=== PATIENT | male | born 1945 | race Caucasian/White ===

== ENCOUNTER 2018-01-29 21:12 | Emergency (ER) | payer OTHER, SELFPAY ==
--- NOTE | 2018-01-29 21:20 | ED_ITS ---
HPI - General Adult General Chief complaint: Recheck/Abnormal Lab/Rx Stated complaint: SENT BY MD Time Seen by Provider: 01/29/18 21:19 Source: patient Mode of arrival: ambulatory Limitations: no limitations History of Present Illness HPI narrative: 72-year-old was sent to the emergency department by his primary care doctor from [facility] after he was seen today for a chronic cough that he has been having for the past several days / weeks. No fevers. Is reported the patient had blood work performed which showed that he had a pancytopenia in with an ANC just above 950. the primary care doctor sent him here for a repeat of his labs in for evaluation to make sure that the patient was not septic. He did admit the patient looks very well. He was prescribed Augmentin and Robitussin AC which the patient has not yet taken any doses of these medications. Patient states that he feels very well. Has had this chronic cough. No fevers. Review of Systems Constitutional Denies chills, Denies fatigue, Denies fever(s), Denies headache(s), Denies lethargy and Denies malaise Eyes Denies change in vision ENT Ears, Nose, Mouth, and Throat: Denies vertigo, Denies dizziness, Denies headache (s), Denies throat swelling and Denies tongue swelling Cardiovascular Denies chest pain and Denies dyspnea Respiratory Reports cough, Denies dyspnea and Denies wheezing Gastrointestinal Gastrointestinal: Denies abdominal pain, Denies nausea and Denies vomiting Genitourinary Denies dysuria Musculoskeletal Denies myalgias and Denies arthralgias Integumentary/Breasts Denies lesions and Denies rash Neurologic Denies behavioral changes, Denies vertigo, Denies dizziness and Denies headache( s) Psychiatric Denies behavioral changes Endocrine Denies change in body appearance and Denies fatigue Hematologic/Lymphatic Comments: Not on anticoagulation Allergic/Immunologic Denies throat swelling, Denies tongue swelling and Denies wheezing PFSH Medical History Basal cell carcinoma (Acute) Skin cancer (Acute) Squamous cell carcinoma (Acute) Surgical History No pertinent past surgical history (Acute) Social History marital status: lives independently: Yes Exam Initial Vital Signs Initial Vital Signs: Vital Signs Temperature 98.8 F 01/29/18 21:25 Pulse Rate 68 01/29/18 21:25 Respiratory Rate 16 01/29/18 21:25 Blood Pressure 174/82 H 01/29/18 21:25 Pulse Oximetry 100 01/29/18 21:25 Const General: cooperative, healthy appearing, comfortable, well developed, well groomed and No acute distress Orientation: alert, awake and oriented x3 HENMT Head: normal to inspection, normocephalic and atraumatic Ears: hearing grossly normal bilaterally Nose: external nose normal Face and sinus: normal facial exam Eyes General: appearance normal, both eyes and all related structures Resp Effort & Inspection: normal respiratory effort Auscultation: clear to auscultation bilaterally Cardio Rate: regular rate Rhythm: regular rhythm Heart Sounds: no murmurs GI Inspection: non-distended Palpation: soft Skin Lesions: no lesions Rashes: no rashes Neuro General: alert, awake and oriented x3 Cognition: normal cognition Speech: speech normal Gait: normal gait Extrem General: normal to inspection and capillary refill normal Psych Appearance: grossly normal and well kempt Course Orders Ordered: ED Orders 01/29/18 21:21 XR chest 2V Stat 01/29/18 21:44 Urine Microscopic Stat 01/29/18 21:45 Basic Metabolic Panel Stat Complete Blood Count AUTO DIFF Stat Ethanol (ETOH) Stat Hepatic (Liver) Panel Stat Lactate (Lactic Acid) Stat Procalcitonin Stat Vital Signs - 8 hr 01/29/18 21:25 01/29/18 23:36 Temperature 98.8 F 97.8 F Pulse Rate 68 68 Respiratory Rate 16 Blood Pressure 174/82 H Blood Pressure [Right Arm] 153/74 H Pulse Oximetry 100 94 Medical Decision Making Lab Data Lab results reviewed: Yes I reviewed the patient's lab results. Result diagrams: 01/29/18 21:45 01/29/18 21:45 Lab Results 01/29/18 01/29/18 01/29/18 Range/Units 21:44 21:45 21:45 WBC 1.9 L* (4.5-11.0) X10^3/uL RBC 3.40 L (4.5-5.9) X10^6/uL Hgb 11.8 L (13.5-17.5) g/dL Hct 34.5 L (41-53) % MCV 101.3 H (80-100) fL MCH 34.6 H (26-34) PG MCHC 34.1 (30-36) % RDW 17.1 H (11.6-14.8) % Plt Count 250 (150-400) X10^3/uL Neut % (Auto) Not Reportable Lymph % (Auto) Not Reportable [place] % (Auto) Not Reportable Eos % (Auto) Not Reportable Baso % (Auto) Not Reportable Total Counted 100 Seg Neutrophils % 52.0 (38-70) % Lymphocytes % (Manual) 19.0 L (25-45) % Atypical Lymphs % 19.0 H ( - 0) % Monocytes % (Manual) 4.0 (2-11) % Eosinophils % (Manual) 6.0 H (2-4) % Neutrophils # (Manual) 988 L (2916-5560) /uL RBC Morphology Not Reportable Anisocytosis 2+ H Sodium 142 (137-145) mmol/L Potassium 3.4 (3.4-5.1) mmol/L Chloride 105 (98-107) mmol/L Carbon Dioxide 25 (22-32) mmol/L BUN 13 (9-20) mg/dL Creatinine 0.70 (0.66-1.25) mg/dL Estimated GFR > 60.0 (>60) mL/min BUN/Creatinine Ratio 18.6 (6-22) Glucose 102 (80-110) mg/dL Lactate (0.7-2.1) mmol/L Calcium 9.7 (8.4-10.2) mg/dL Total Bilirubin 0.5 (0.2-1.3) mg/dL Conjugated Bilirubin 0.0 (0.0-0.3) md/dL Unconjugated Bilirubin 0.3 (0.0-1.1) mg/dL AST 26 (17-59) IU/L ALT 39 (21-72) IU/L Alkaline Phosphatase 68 (38-126) U/L Total Protein 7.9 (6.3-8.2) g/dL Albumin 4.8 (3.5-5.0) g/dL Globulin 3.1 (1.7-4.1) g/dL Albumin/Globulin Ratio 1.5 (1.0-2.8) Procalcitonin (<0.5) ng/mL Urine RBC 5-10/hpf H (0-5/HPF) Urine WBC None seen (0-5/HPF) Ur Squamous Epith Cells 0-1 /hpf Urine Bacteria None seen (None) Ur Culture Indicated? Cult not indicated Micro UA Comment Not Reportable Ethyl Alcohol < 10 mg/dL 01/29/18 01/29/18 Range/Units 21:45 21:45 WBC (4.5-11.0) X10^3/uL RBC (4.5-5.9) X10^6/uL Hgb (13.5-17.5) g/dL Hct (41-53) % MCV (80-100) fL MCH (26-34) PG MCHC (30-36) % RDW (11.6-14.8) % Plt Count (150-400) X10^3/uL Neut % (Auto) Lymph % (Auto) [place] % (Auto) Eos % (Auto) Baso % (Auto) Total Counted Seg Neutrophils % (38-70) % Lymphocytes % (Manual) (25-45) % Atypical Lymphs % ( - 0) % Monocytes % (Manual) (2-11) % Eosinophils % (Manual) (2-4) % Neutrophils # (Manual) (6072-6204) /uL RBC Morphology Anisocytosis Sodium (137-145) mmol/L Potassium (3.4-5.1) mmol/L Chloride (98-107) mmol/L Carbon Dioxide (22-32) mmol/L BUN (9-20) mg/dL Creatinine (0.66-1.25) mg/dL Estimated GFR (>60) mL/min BUN/Creatinine Ratio (6-22) Glucose (80-110) mg/dL Lactate 1.2 (0.7-2.1) mmol/L Calcium (8.4-10.2) mg/dL Total Bilirubin (0.2-1.3) mg/dL Conjugated Bilirubin (0.0-0.3) md/dL Unconjugated Bilirubin (0.0-1.1) mg/dL AST (17-59) IU/L ALT (21-72) IU/L Alkaline Phosphatase (38-126) U/L Total Protein (6.3-8.2) g/dL Albumin (3.5-5.0) g/dL Globulin (1.7-4.1) g/dL Albumin/Globulin Ratio (1.0-2.8) Procalcitonin < 0.05 (<0.5) ng/mL Urine RBC (0-5/HPF) Urine WBC (0-5/HPF) Ur Squamous Epith Cells Urine Bacteria (None) Ur Culture Indicated? Micro UA Comment Ethyl Alcohol mg/dL Urine Dip Bedside Urine Glucose Negative Bedside Urine Bilirubin - Negative Bedside Urine Ketone - Negative Urine Specific [place] 1.030 Bedside Urine Occult Blood ++ Bedside Urine pH 6.0 Bedside Urine Protein - Negative Bedside Urine Urobilinogen - Negative Bedside Urine Nitrite - Negative Bedside Urine Leukocytes - Negative Esterase Point of care testing: Urine Dip Bedside Urine Glucose Negative Bedside Urine Bilirubin - Negative Bedside Urine Ketone - Negative Urine Specific [place] 1.030 Bedside Urine Occult Blood ++ Bedside Urine pH 6.0 Bedside Urine Protein - Negative Bedside Urine Urobilinogen - Negative Bedside Urine Nitrite - Negative Bedside Urine Leukocytes - Negative Esterase Imaging Data Chest x-ray: Radiologist's impression: PROCEDURE: XR CHEST 2V INDICATIONS: eval for pneumonia TECHNIQUE: 2 views of the chest were acquired. COMPARISON: None. FINDINGS: Surgical changes and devices: None. Lungs and pleura: No pleural effusions or pneumothorax. Lungs are clear. Mediastinum: Mediastinal contours are normal. Heart size is normal. Bones and chest wall: No suspicious bony abnormalities. Soft tissues appear unremarkable. IMPRESSION: No acute cardiopulmonary disease process. Dictated by: Evy Roberts MD, PhD on 01/29/2018 at 21:47 Approved by: Evy Roberts MD, PhD on 01/29/2018 at 21:47 [facility] Narrative Medical decision making narrative: patient is neutropenic with a ANC of 988 however is afebrile. No signs of infection. Has a normal exam. Chest x-ray and urine unremarkable. Patient does have a low white blood cell count. Recently finished a course of steroids for his chronic cough that has been greater than 2 weeks ago. Patient has no signs of sepsis. A long discussion with the patient regarding his symptoms. We did discuss that taking the antibiotics that he was prescribed is not unreasonable for treatment of a presumed atypical pneumonia. We also discussed other options to include a daily antihistamine such as Claritin or Angela and the Robitussin AC. Also stated that he could do these in addition to the antibiotics if desired. I feel like there is no further workup that needs to be completed here in the emergency department. The patient looks very well. Patient was given a copy of his laboratory results to take to his primary care doctor. Patient was given return precautions. He expressed understanding and agreement this plan. Discharge Plan Departure Patient Disposition: Home Clinical Impression: Cough, Leukopenia Discharge Date/Time: 01/30/18 00:06 Interventions: ED Discharge Assessment Last Done: 01/30/18 00:05 Instructions: Cough (Alternative Therapy), Cough Activity Restrictions/Additional Instructions: I do recommend you contact your primary care doctor tomorrow to discuss the labs that were done today. Return to the emergency department for any new or worsening symptoms.
[2018-01-29 21:25] VITALS: BP 174/82; PULSE 68; RESP 16; TEMP 37.1; O2SAT 100; BMI 27.3
[2018-01-29 22:05] LABS: Hematocrit 34.5 % (41-53); Hemoglobin 11.8 g/dL (13.5-17.5); Mean Corpuscular HGB Conc 34.1 % (30-36); Mean Corpuscular Hemoglobin 34.6 PG (26-34); Mean Corpuscular Volume 101.3 fL (80-100); Platelet Count 250 X10^3/uL (150-400); Red Cell Distribution Width 17.1 % (11.6-14.8)
[2018-01-29 22:06] LABS: Add Manual Diff / Slide Review YES
[2018-01-29 22:07] LABS: White Blood Cell Count 1.9 X10^3/uL (4.5-11.0)
[2018-01-29 22:12] LABS: Alanine Aminotransferase 39 IU/L (21-72); Albumin 4.8 g/dL (3.5-5.0); Albumin Globulin Ratio 1.5 (1.0-2.8); Alkaline Phosphatase 68 U/L (38-126); Aspartate Aminotransferase 26 IU/L (17-59); BUN Creatinine Ratio 18.6 (6-22); Bilirubin Total 0.5 mg/dL (0.2-1.3); Bilirubin Unconjugated 0.3 mg/dL (0.0-1.1); Blood Urea Nitrogen 13 mg/dL (9-20); Calcium 9.7 mg/dL (8.4-10.2); Carbon Dioxide 25 mmol/L (22-32); Chloride 105 mmol/L (98-107); Estimated Glomerular Filt Rate > 60.0 mL/min (>60); Globulin 3.1 g/dL (1.7-4.1); Glucose 102 mg/dL (80-110); HEMOLYSIS < 15 (0-50); Potassium 3.4 mmol/L (3.4-5.1); Sodium 142 mmol/L (137-145); Total Protein 7.9 g/dL (6.3-8.2)
[2018-01-29 22:13] LABS: Lactate (Lactic Acid) 1.2 mmol/L (0.7-2.1)
[2018-01-29 22:20] LABS: Ethanol (ETOH) < 10 mg/dL
[2018-01-29 22:23] LABS: Bacteria Urine None Seen; WBC Urine None Seen (0-5/HPF)
[2018-01-29 22:25] LABS: Neutrophils Absolute Manual 988 /uL (3000-5900); Total Cells Counted 100
[2018-01-29 22:26] LABS: Anisocytosis 2+
[2018-01-29 22:30] LABS: Culture Indicated Urine Cult Not Indicated; RBC Urine 5-10/HPF (0-5/HPF); Squamous Epithelial Cell Urine 0-1 /HPF
[2018-01-29 22:39] LABS: Procalcitonin < 0.05 ng/mL (<0.5)
[2018-01-29 23:36] VITALS: BP 153/74; PULSE 68; TEMP 36.6; O2SAT 94
== END 2018-01-30 00:06 | disposition home or self-care (01) ==
PROVIDERS: Emergency Provider Emergency Medicine; Family Provider Family Medicine; PCP Family Medicine
DX: D72.819 Decreased white blood cell count, unspecified (principal); R05 Cough
CPT/HCPCS: 36591; 71046; 80048; 80076; 80320; 81003; 81015; 83605; 84145; 85025; 99282; 99284

== ENCOUNTER → 2020-07-10 11:59 | Outpatient (CLI) | payer MEDICARE, SELFPAY ==
[2020-07-10 20:04] LABS: Alanine Aminotransferase 22 IU/L (<50); Albumin 4.4 g/dL (3.5-5.0); Albumin Globulin Ratio 1.7 (1.0-2.8); Alkaline Phosphatase 78 U/L (38-126); Aspartate Aminotransferase 23 IU/L (17-59); BUN Creatinine Ratio 21.9 (6-22); Bilirubin Total 0.7 mg/dL (0.2-1.3); Blood Urea Nitrogen 16 mg/dL (9-20); Calcium 9.5 mg/dL (8.4-10.2); Carbon Dioxide 28 mmol/L (22-32); Chloride 103 mmol/L (98-107); Estimated Glomerular Filt Rate > 60.0 mL/min (>60); Globulin 2.6 g/dL (1.7-4.1); Glucose 113 mg/dL (80-110); HEMOLYSIS < 15 (0-50); Potassium 3.7 mmol/L (3.4-5.1); Sodium 141 mmol/L (137-145)
[2020-07-10 20:20] LABS: Add Manual Diff / Slide Review NO; Basophils Absolute Auto 0 /uL (0-100); Basophils Percent Auto 0.8 % (0-2); Eosinophils Absolute Auto 100 /uL (0-450); Eosinophils Percent Auto 2.1 % (2-4); Hematocrit 43.1 % (41-53); Hemoglobin 14.8 g/dL (13.5-17.5); Lymphocytes Absolute Auto 600 /uL (1100-4500); Lymphocytes Percent Auto 26.3 % (25-40); Mean Corpuscular HGB Conc 34.2 % (30-36); Mean Corpuscular Hemoglobin 33.3 PG (26-34); Mean Corpuscular Volume 97.1 fL (80-100); Monocytes Absolute Auto 400 /uL (0-900); Monocytes Percent Auto 15.3 % (3-14); Neutrophils Absolute Auto 1400 /uL (1500-7000); Neutrophils Percent Auto 55.5 % (50-75); Platelet Count 154 X10^3/uL (150-400); Red Blood Cell Count 4.44 X10^6/uL (4.5-5.9); Red Cell Distribution Width 15.1 % (11.6-14.8); White Blood Cell Count 2.5 X10^3/uL (4.5-11.0)
== END ==
PROVIDERS: Family Provider Family Medicine; PCP Family Medicine; Visit Provider Internal Medicine Hematology
DX: D72.819 Decreased white blood cell count, unspecified (principal)
CPT/HCPCS: 80053; 85025

== ENCOUNTER → 2021-09-05 11:45 | Outpatient (CLI) | payer MEDICARE, OTHER, SELFPAY ==
[2021-09-05 18:41] LABS: Hemoglobin 13.3 g/dL (13.5-17.5)
[2021-09-05 18:46] LABS: Mean Corpuscular Hemoglobin 31.9 PG (26-34); Mean Corpuscular Volume 93.7 fL (80-100); Platelet Count 69 X10^3/uL (150-400); Red Blood Cell Count 4.16 X10^6/uL (4.5-5.9); Red Cell Distribution Width 16.6 % (11.6-14.8)
[2021-09-05 18:55] LABS: Add Manual Diff / Slide Review YES; White Blood Cell Count 1.4 X10^3/uL (4.5-11.0)
[2021-09-05 19:02] LABS: Neutrophils Absolute Manual 756 /uL (3000-5900); Total Cells Counted 100
[2021-09-05 19:03] LABS: Anisocytosis 1+; Ovalocytes 1+; Platelet Estimate Decr
== END ==
PROVIDERS: Family Provider Family Medicine; PCP Family Medicine; Visit Provider Family Medicine
DX: D70.8 Other neutropenia (principal); R50.9 Fever, unspecified; D46.9 Myelodysplastic syndrome, unspecified; R35.0 Frequency of micturition
CPT/HCPCS: 85007; 85025; 87040; 87086

== ENCOUNTER 2021-09-10 14:23 | Inpatient (IN) | payer MEDICARE, OTHER, SELFPAY ==
[2021-09-10] VITALS (26 sets, daily range): BP systolic 90–157; BP diastolic 51–77; PULSE 83–150; RESP 18–29; TEMP 36.8; O2SAT 82–100; BMI 25.9; BMI 25.2
--- NOTE | 2021-09-10 14:39 | DI.RAD.S_ITS ---
PROCEDURE: XR CHEST 1V INDICATIONS: chest pain TECHNIQUE: One view of the chest was acquired. COMPARISON: [facility] ([place]), CR, XR CHEST 2V, 09/05/2021, 11:45. FINDINGS: Surgical changes and devices: None. Lungs and pleura: Coarsened appearance of bibasilar opacities. Mediastinum: Mediastinal contours appear normal. Heart size is enlarged. Bones and chest wall: No suspicious bony lesions. Overlying soft tissues appear unremarkable. IMPRESSION: Coarsened bibasilar opacities, overall nonspecific. This could be related to atelectasis, dependent edema or potentially developing airspace disease. It is relatively unchanged compared to prior exam. Dictated by: Leydi Toribio M.D. on 09/10/2021 at 15:55 Approved by: Leydi Toribio M.D. on 09/10/2021 at 15:55
[2021-09-10 15:23] LABS: Hematocrit 36.5 % (41-53); Hemoglobin 12.6 g/dL (13.5-17.5); Mean Corpuscular HGB Conc 34.6 % (30-36); Mean Corpuscular Hemoglobin 31.7 PG (26-34); Mean Corpuscular Volume 91.5 fL (80-100); Platelet Count 89 X10^3/uL (150-400); Red Blood Cell Count 3.99 X10^6/uL (4.5-5.9); Red Cell Distribution Width 16.2 % (11.6-14.8)
[2021-09-10 15:24] LABS: Add Manual Diff / Slide Review YES; White Blood Cell Count 1.6 X10^3/uL (4.5-11.0)
[2021-09-10 15:34] LABS: Alanine Aminotransferase 16 IU/L (<50); Albumin 3.7 g/dL (3.5-5.0); Alkaline Phosphatase 61 U/L (38-126); Aspartate Aminotransferase 19 IU/L (17-59); BUN Creatinine Ratio 27.4 (6-22); Bilirubin Total 0.5 mg/dL (0.2-1.3); Blood Urea Nitrogen 23 mg/dL (9-20); Calcium 8.7 mg/dL (8.4-10.2); Carbon Dioxide 24 mmol/L (22-32); Chloride 104 mmol/L (98-107); Creatine Kinase 39 U/L (55-170); Estimated Glomerular Filt Rate > 60 mL/min (>60); Globulin 3.6 g/dL (1.7-4.1); Glucose 146 mg/dL (80-110); HEMOLYSIS < 15 (0-50); Lipase 13 U/L (23-300); Magnesium 2.1 mg/dL (1.6-2.3); Potassium 3.7 mmol/L (3.4-5.1); Sodium 137 mmol/L (137-145); Total Protein 7.3 g/dL (6.3-8.2)
[2021-09-10 15:41] LABS: Neutrophils Absolute Manual 816 /uL (3000-5900); Total Cells Counted 100
[2021-09-10 15:43] LABS: Anisocytosis 1+; Tear Drop Cells 1+
--- NOTE | 2021-09-10 15:53 | ED.ARRPALP ---
HPI - Arrhythmia/Palpitations General Chief Complaint: Arrhythmia/Palpitations Stated Complaint: High heart rate/ low blood pressure- sent by [facility] Time Seen by Provider: 09/10/21 14:45 Source: patient and family Mode of arrival: Ambulatory History of Present Illness HPI narrative: Patient is a 75-year-old male history of myelodysplastic syndrome, leukopenia currently on Revlimid presenting today with atrial fibrillation from the [facility]. He was seen evaluated all last week is had fever for couple of days as high as 100.1 all in no 101.6. He has been taking prophylactic Levaquin and acyclovir. He was seen evaluated by his primary care provider at that time. [place] including urinalysis blood work and chest x-ray. He says 2 days ago he felt a little bit of fluttering in his chest but he denies any shortness of breath cough or any chest discomfort. He was evaluated by EMS who reports that he is in atrial fibrillation. He is not currently on any blood thinners. He overall has no complaints now he is in the emergency department Related Data Home Medications Medication Instructions Recorded Confirmed amlodipine 2.5 mg tablet (Norvasc) 2.5 mg PO DAILY 03/03/18 02/03/19 diphenhydramine HCl 25 mg tablet 1 cap DAILY 03/03/18 02/03/19 (Benadryl Allergy) Previous Rx's Medication Instructions Recorded acyclovir 400 mg tablet 400 mg PO BID #60 tabs 12/01/18 lenalidomide 10 mg capsule 10 mg PO DAILY #21 caps 03/24/19 (Revlimid) Allergies Allergy/AdvReac Type Severity Reaction Status Date / Time No Known Drug Allergies Allergy Verified 09/10/21 14:35 Review of Systems Review of Systems Narrative: GENERAL: See HPI HEENT: Denies sinus pain, ear pain, sore throat, difficulty swallowing, neck pain RESPIRATORY: Denies dyspnea, cough, wheezing, hemoptysis, sputum. CARDIOVASCULAR: See HPI GASTROINTESTINAL: Denies nausea, vomiting, abdominal pain, diarrhea, constipation, melena. : Denies dysuria, frequency, incontinence, hematuria, urinary retention, flank pain. MUSCULOSKELETAL: Denies weakness, joint pain, or bony pain SKIN: No rash, no erythema, no pruritus NEUROLOGIC: Denies weakness, dizziness, headache, numbness, change in speech, confusion PSYCHIATRIC: No concerning psychosocial issues. 12 point review of systems is negative except for those stated above and HPI Patient History Medical History Basal cell carcinoma Skin cancer Squamous cell carcinoma Surgical History No pertinent past surgical history Social History marital status: lives independently: Yes Smoking Status: Never smoker Smoking Status: Never smoker alcohol intake frequency: a few times a month Substance Use Type: does not use Exam Initial Vital Signs Initial Vital Signs: Vital Signs Temperature 98.3 F 09/10/21 14:26 Pulse Rate 121 H 09/10/21 14:26 Respiratory Rate 18 09/10/21 14:26 Blood Pressure 157/74 H 09/10/21 14:26 Pulse Oximetry 100 09/10/21 14:26 Oxygen Delivery Method 09/10/21 14:26 GENERAL: Alert pleasant 75-year-old male no acute distress and in no acute distress. HEENT: Head atraumatic,EOMI, pupils reactive, face symmetric, moist mucous membranes CARDIOVASCULAR: Irregularly irregular tachycardic RESPIRATORY: Breath sounds equal bilaterally, no wheezes rales or rhonchi. ABDOMEN: Soft, nontender. Normoactive bowel sounds all 4 quadrants. No guarding or rebound. EXTREMITIES: Normal range of motion, no clubbing or edema. Neurovascularly intact NEUROLOGICAL: Alert and oriented x4.Normal gait and speech. SKIN: Warm, dry, no laceration, no petechiae, no rashes or lesions. Course Orders Ordered: ED Orders 09/10/21 14:35 EKG-12 Lead Stat 09/10/21 14:39 XR chest 1V Stat 09/10/21 14:49 BNP [NT-proBNP (BNP-Adult 18+)] Stat Complete Blood Count AUTO DIFF Stat Comprehensive Metabolic Panel Stat Lactate (Lactic Acid) Stat Lipase Stat Magnesium Stat PT [Prothrombin Time INR] Stat PTT [Partial Thromboplastin Time] Stat Procalcitonin Stat Troponin & CK Cardiac Panel Stat 09/10/21 16:53 Blood Culture Stat 09/10/21 18:05 COVID19 -Nasal RAPID/Pre-Proc Stat 09/10/21 23:00 PTT [Partial Thromboplastin Time] Stat 09/11/21 04:15 Partial Thromboplastin Time Q6H 09/11/21 10:15 Partial Thromboplastin Time Q6H Discontinued Medications Digoxin (Digoxin 500 Mcg/2 Ml Ampul) 250 mcg IV NOW ONE Stop: 09/10/21 17:24 Last Admin: 09/10/21 18:08 Dose: 250 mcg Documented By: YENNI Diltiazem HCl (Diltiazem 5 Mg/Ml Sdv) 10 mg IV NOW ONE Stop: 09/10/21 16:04 Last Admin: 09/10/21 16:41 Dose: 10 mg Documented By: YENNI Heparin Sodium (Porcine) (Heparin 5,000 Unit/Ml Vial) 6,900 unit 80 unit/kg (6900 unit) IV NOW ONE Stop: 09/10/21 16:10 Last Admin: 09/10/21 16:58 Dose: 6,900 unit Documented By: YENNI Heparin Sodium/Dextrose (Heparin Drip) 25,000 unit in 500 mls @ 20 mls/hr IV CONT KATHERINE; Protocol Last Titration: 09/10/21 17:14 Dose: 1,000 units/hr, 20 mls/hr Documented By: Admin: 09/10/21 16:59 Dose: 1,000 units/hr, 20 mls/hr Documented By: YENNI Vital Signs Vital signs: Vital Signs - 8 hr 09/10/21 14:26 09/10/21 14:48 09/10/21 14:52 Temperature 98.3 F Pulse Rate 121 H 83 142 H Respiratory Rate 18 23 Blood Pressure 157/74 H Pulse Oximetry 100 99 100 Oxygen Delivery Method Room Air 09/10/21 14:52 09/10/21 15:00 09/10/21 16:41 Temperature Pulse Rate 141 H 142 H Respiratory Rate 28 H Blood Pressure 108/58 L 108/58 L Pulse Oximetry 98 Oxygen Delivery Method MDM - Arrhythmia/Palpitations Lab Data Result diagrams: 09/10/21 14:49 09/10/21 14:49 Labs: Lab Results 09/10/21 09/10/21 09/10/21 Range/Units 14:49 14:49 14:49 WBC 1.6 L* (4.5-11.0) X10^3/uL RBC 3.99 L (4.5-5.9) X10^6/uL Hgb 12.6 L (13.5-17.5) g/dL Hct 36.5 L (41-53) % MCV 91.5 (80-100) fL MCH 31.7 (26-34) PG MCHC 34.6 (30-36) % RDW 16.2 H (11.6-14.8) % Plt Count 89 L (150-400) X10^3/uL Neut % (Auto) Not Reportable Lymph % (Auto) Not Reportable [place] % (Auto) Not Reportable Eos % (Auto) Not Reportable Baso % (Auto) Not Reportable Lymph # (Auto) Not Reportable [place] # (Auto) Not Reportable Baso # (Auto) Not Reportable Total Counted 100 Seg Neutrophils % 51.0 (38-70) % Lymphocytes % (Manual) 23.0 L (25-45) % Atypical Lymphs % 1.0 H ( - 0) % Monocytes % (Manual) 11.0 (2-11) % Eosinophils % (Manual) 14.0 H (2-4) % Neutrophils # (Manual) 816 L (3578-0544) /uL RBC Morphology See below Anisocytosis 1+ H Tear Drop Cells 1+ H PT 15.8 H (10.1-12.7) SECONDS INR 1.4 H (0.9-1.3) APTT 30 (26.4-36.2) SECONDS Sodium 137 (137-145) mmol/L Potassium 3.7 (3.4-5.1) mmol/L Chloride 104 (98-107) mmol/L Carbon Dioxide 24 (22-32) mmol/L BUN 23 H (9-20) mg/dL Creatinine 0.84 (0.66-1.25) mg/dL Estimated GFR > 60 (>60) mL/min BUN/Creatinine Ratio 27.4 H (6-22) Glucose 146 H (80-110) mg/dL Lactate (0.7-2.1) mmol/L Calcium 8.7 (8.4-10.2) mg/dL Magnesium 2.1 (1.6-2.3) mg/dL Total Bilirubin 0.5 (0.2-1.3) mg/dL AST 19 (17-59) IU/L ALT 16 (<50) IU/L Alkaline Phosphatase 61 (38-126) U/L Total Creatine Kinase 39 L (55-170) U/L CK-MB (CK-2) TNP CK-MB (CK-2) Rel Index TNP Troponin I 1.170 H* (0.01-0.034) ng/mL NT-Pro-B Natriuret Pep (<125) pg/mL Total Protein 7.3 (6.3-8.2) g/dL Albumin 3.7 (3.5-5.0) g/dL Globulin 3.6 (1.7-4.1) g/dL Albumin/Globulin Ratio 1.0 (1.0-2.8) Lipase 13 L (23-300) U/L Procalcitonin (<0.5) ng/mL 09/10/21 09/10/21 09/10/21 Range/Units 14:49 14:49 14:49 WBC (4.5-11.0) X10^3/uL RBC (4.5-5.9) X10^6/uL Hgb (13.5-17.5) g/dL Hct (41-53) % MCV (80-100) fL MCH (26-34) PG MCHC (30-36) % RDW (11.6-14.8) % Plt Count (150-400) X10^3/uL Neut % (Auto) Lymph % (Auto) [place] % (Auto) Eos % (Auto) Baso % (Auto) Lymph # (Auto) [place] # (Auto) Baso # (Auto) Total Counted Seg Neutrophils % (38-70) % Lymphocytes % (Manual) (25-45) % Atypical Lymphs % ( - 0) % Monocytes % (Manual) (2-11) % Eosinophils % (Manual) (2-4) % Neutrophils # (Manual) (6773-3824) /uL RBC Morphology Anisocytosis Tear Drop Cells PT (10.1-12.7) SECONDS INR (0.9-1.3) APTT (26.4-36.2) SECONDS Sodium (137-145) mmol/L Potassium (3.4-5.1) mmol/L Chloride (98-107) mmol/L Carbon Dioxide (22-32) mmol/L BUN (9-20) mg/dL Creatinine (0.66-1.25) mg/dL Estimated GFR (>60) mL/min BUN/Creatinine Ratio (6-22) Glucose (80-110) mg/dL Lactate 1.1 (0.7-2.1) mmol/L Calcium (8.4-10.2) mg/dL Magnesium (1.6-2.3) mg/dL Total Bilirubin (0.2-1.3) mg/dL AST (17-59) IU/L ALT (<50) IU/L Alkaline Phosphatase (38-126) U/L Total Creatine Kinase (55-170) U/L CK-MB (CK-2) CK-MB (CK-2) Rel Index Troponin I (0.01-0.034) ng/mL NT-Pro-B Natriuret Pep 6180 H (<125) pg/mL Total Protein (6.3-8.2) g/dL Albumin (3.5-5.0) g/dL Globulin (1.7-4.1) g/dL Albumin/Globulin Ratio (1.0-2.8) Lipase (23-300) U/L Procalcitonin 0.08 (<0.5) ng/mL Imaging Data Chest x-ray: Radiologist's Impresson: XRay Report Signed Patient: Nikolas Rosales MR#: [id number] : 1945 Acct:[id number] Age/Sex: 75 / M Date of Service: 09/10/21 Loc: ED Accession Number: [id number] ?? Procedure: XR chest 1V Ordering Provider: Hayley Dacosta D.O. PROCEDURE:? XR CHEST 1V ? INDICATIONS:? chest pain ? TECHNIQUE:? One view of the chest was acquired.? ? COMPARISON:? [facility] ([place]), CR, XR CHEST 2V, 09/05/2021, 11:45. ? FINDINGS:? ? Surgical changes and devices:? None.? ? Lungs and pleura:? Coarsened appearance of bibasilar opacities. ? Mediastinum:? Mediastinal contours appear normal.? Heart size is enlarged. ? Bones and chest wall:? No suspicious bony lesions.? Overlying soft tissues appear unremarkable.? ? IMPRESSION:? Coarsened bibasilar opacities, overall nonspecific.? This could be related to atelectasis, dependent edema or potentially developing airspace disease.? It is relatively unchanged compared to prior exam. ? ? Dictated by: Leydi Toribio M.D. on 09/10/2021 at 15:55 ? ECG Data Interpretation: Atrial fibrillation with RVR rate MDM Narrative Medical decision making narrative: Patient is found to have new onset atrial fibrillation ongoing for at least 48 hours out of window for cardioversion. May be secondary to Revlimid. He also was found have an elevated troponin probably secondary to new onset AFib and tachycardia. Patient continues to be leukopenic no evidence of infection at this time, blood cultures pending. Troponin came back positive at 1.1. He initially was given a bolus of heparin however his platelets are 89. He was not given a drip of heparin. Dr. Stewart You cardiology consult id. Heart rate seems to be going back up blood pressure remains slightly low in the 90s. He recommends digoxin 0.25 his IV and then metoprolol 25 mg every 8 hours PO. He also agrees with no heparin and does not think aspirin is appropriate either. Patient's BNP is 6000. He is really not hypoxic but he is given a small dose of Lasix. Discharge Plan Departure Patient Disposition: Admitted As Inpatient Clinical Impression: Atrial fibrillation with rapid ventricular response, Myelodysplastic syndrome Admit Date/Time: 09/10/21 17:29 Admit Provider: Kiara De Jesus
[2021-09-10 16:09] LABS: INR 1.4 (0.9-1.3); Prothrombin Time 15.8 SECONDS (10.1-12.7)
[2021-09-10 16:12] LABS: PTT Partial Thromboplastin Tim 30 SECONDS (26.4-36.2)
[2021-09-10 16:25] LABS: Lactate (Lactic Acid) 1.1 mmol/L (0.7-2.1)
[2021-09-10 16:35] LABS: NT-proBNP (BNP-Adult 18+) 6180 pg/mL (<125)
[2021-09-10] MEDS: dilTIAZem 5 MG/ML SDV 10 MG IV (16:41)
[2021-09-10 16:54] LABS: Procalcitonin 0.08 ng/mL (<0.5)
[2021-09-10] MEDS: HEPARIN 5,000 UNIT/ML VIAL 6900 UNIT IV (16:58)
[2021-09-10] MEDS: HEPARIN DRIP 25,000 UNIT/500 ML IV.SOLN 20 UNIT IV (16:59)
--- NOTE | 2021-09-10 17:05 | PC.NURSE ---
heparin drip and bolus verified with Aurelia BAIG
--- NOTE | 2021-09-10 17:15 | PC.NURSE ---
Heparin Drip Stopped per Dr Dacosta, due to patients platelets.
[2021-09-10] MEDS: DIGOXIN 500 MCG/2 ML AMPUL 250 MCG IV (18:08)
[2021-09-10 18:57] LABS: COVID19 -Nasal RAPID Negative (Negative)
--- NOTE | 2021-09-10 19:41 | DI.ECHO.S_ITS ---
[facility] +---------+ : : [address] : : : : [id number] : : : : Phone: [phone]+ Echocardiogram Report + + :Name: EDMUND IVEY Study Date: 09/11/2021 Height: 72 in : :[facility] ReadingLocation: Weight: 191 lb : : Gender: Male BSA: 2.1 m2 : :: 1945 Age: 75 yrs BP: 142/101 mmHg: :Reason For Study: ATRIAL FIBRILLATION : :Ordering Physician: BLAKE, : :FRANNIE Performed By: Cris Bush : :Referring: FRANNIE LOZANO : + + Interpretation Summary There is mild concentric left ventricular hypertrophy. The ejection fraction is estimated to be 40-45%. Diastolic function could not be accurately assessed due to atrial fibrillation. The right ventricle is mildly dilated. The right ventricular systolic function is normal. Moderate biatrial enlargement. There is moderate mitral regurgitation. There is trace aortic regurgitation. There is mild tricuspid regurgitation. The right ventricular systolic pressure is estimated to be at least 53 mmHg based on an estimated right atrial pressure of 15 mm Hg. The ascending aorta is mildly enlarged. Procedure: A two-dimensional transthoracic echocardiogram with color flow and Doppler was performed. The study quality was technically adequate. There is no prior echocardiogram noted for this patient. The patient was in atrial fibrillation with heart rates between 89-134 bpm during the exam. Left Ventricle: The left ventricle is normal in size. There is mild concentric left ventricular hypertrophy. The ejection fraction is estimated to be 40-45%. Diastolic function could not be accurately assessed due to atrial fibrillation. Right Ventricle: The right ventricle is mildly dilated. The right ventricular systolic function is normal. Atria: The left atrium is moderately dilated. The right atrium is moderately dilated. There is no Doppler evidence for an interatrial shunt. Mitral Valve: The mitral valve is normal in structure and function. There is moderate mitral regurgitation. Aortic Valve: The aortic valve is trileaflet. The aortic valve opens well. There is no aortic valve stenosis. There is trace aortic regurgitation. Tricuspid Valve: The tricuspid valve is normal in structure and function. There is mild tricuspid regurgitation. The right ventricular systolic pressure is estimated to be at least 53 mmHg based on an estimated right atrial pressure of 15 mm Hg. Pulmonic Valve: The pulmonic valve leaflets are thin and pliable; valve motion is normal. There is no pulmonic valvular regurgitation. Great Vessels: The aortic root is mildly dilated. The ascending aorta is mildly enlarged. The IVC is dilated (diameter is greater than 2.1 cm) and it collapses less than 50% with a sniff. This suggests a high right atrial pressure of 15 mm Hg. Pericardium/ Pleura There is no pericardial effusion. MMode/2D Measurements & Calculations LVIDd: 5.3 cm LVOT diam: 2.5 cm LVIDs: 4.0 cm Ao root diam: 4.0 cm FS: 25.3 % asc Aorta Diam: 4.0 cm EPSS: 0.94 cm Ao Arch Diam (Prox Trans): 3.2 cm IVSd: 1.2 cm LVPWd: 1.1 cm LV díaz. diameter/BSA (cm/m^2): 2.5 LV sys. diameter/BSA (cm/m^2): 1.9 LA A2 area: 45.2 cm2 RA long axis: 7.1 cm LA A4 area: 40.7 cm2 RA area: 38.7 cm2 LA length (vol): 8.0 cm RA vol: 178.9 ml LA vol: 193.9 ml RA : 85.7 ml/m2 LA vol index: 92.8 ml/m2 IVC diam: 2.3 cm RVD1 (basal): 5.4 cm RVD2 (mid): 3.9 cm TAPSE: 2.3 cm Doppler Measurements & Calculations Ao V2 max: 126.1 cm/sec LVOT Max Farhad: 76.0 cm/sec Ao V2 mean: 96.2 cm/sec LV V1 max P.3 mmHg Ao max P.4 mmHg LV V1 VTI: 13.0 cm Ao mean P.1 mmHg JACK(I,D): 2.8 cm2 Ao V2 VTI: 22.5 cm JACK(V,D): 2.9 cm2 sev ratio: 0.58 JACK indexed to BSA (cm^2/m^2): 1.3 MV E max farhad: 91.8 cm/sec TR max farhad: 264.1 cm/sec MV A max farhad: 2.3 cm/sec TR max P.8 mmHg MV E/A: 40.1 PA V2 max: 88.3 cm/sec Med Peak E' Farhad: 7.4 cm/sec PA V2 mean: 54.9 cm/sec E/E' med: 12.4 PA mean P.4 mmHg Lat Peak E' Farhad: 13.1 cm/sec PA Accel Time: 0.04 sec E/E' lat: 7.0 E/e' average: 9.7 MV dec time: 0.19 sec SV(OT): 63.0 ml Reading Physician:09:47 AM
--- NOTE | 2021-09-10 20:43 | PM.HP.1 ---
History of Present Illness History of Present Illness Date Patient Seen: 09/10/21 Time Patient Seen: 21:30 Chief complaint: High heart rate/ low blood pressure- sent by [employer] Narrative: Mr. Rosales is a 75M with PMH myelodysplastic syndrome on Revlimid who presents today with tachycardia and palpitations. He states last week he developed a fever as high as 101. He saw physician and was found to have neutropenia, which is common for him. He was started on levofloxacin and acyclovir. He was thought to possibly have a pneumonia due to an xray with questionable findings and a slight cough. His fever improved and he defervesced about 2 days ago. However, he then noted he developed fluttering in his chest. He had no chest pain, no shortness of breath. He was told to contact EMS. In the ED workup was done, vitals notable for normal temp, heart rate in the 120s-140s, respiratory rate normal, systolic blood pressure in 90s-150s. He was noted to be in atrial fibrillation with RVR on EKG. He was ordered for diltiazem push x1, he dropped pressure to the systolic 80s-90s, and this was stopped. His heart rate did improve temporarily. He was then tried on digoxin with some effect on his heart rate. Cardiology was contacted who recommended trying oral metoprolol and if that was not successful to try amiodarone. Labs notable for WBC 1.6, 51% PMNs, hgb 12.6, plts 89. creatinine 0.84. INR 1.4. Trop 1.17, BNP 6180. Lactate 1.1. Procal 0.08. Chest xray showed bibasilar opacities overal nonspecific unchanged from prior. He was admitted for further treatment. Family history: no cardiac history, no arrhythmias Social history: no smoking, rare alcohol use Patient History Medical History Basal cell carcinoma Skin cancer Squamous cell carcinoma Surgical History No pertinent past surgical history Family & Social History Social History: lives independently Yes Safety & Behavioral: Feels Safe in Current Yes Environment Tobacco & Substance use: Smoking Status Never smoker alcohol intake frequency a few times a month Substance Use Type does not use Meds Home Medications and Allergies Home Medications Medication Instructions Recorded Confirmed Type diphenhydramine HCl 25 mg tablet 1 cap DAILY 03/03/18 09/10/21 History (Benadryl Allergy) acyclovir 400 mg tablet 400 mg PO BID #60 tabs 12/01/18 09/10/21 Rx lenalidomide 10 mg capsule 10 mg PO DAILY #21 caps 03/24/19 09/10/21 Rx (Revlimid) levofloxacin 750 mg tablet 750 mg PO DAILY 09/10/21 09/10/21 History Allergies Allergy/AdvReac Type Severity Reaction Status Date / Time No Known Drug Allergies Allergy Verified 09/10/21 14:35 Review of Systems Review of Systems Narrative: 14 systems reviewed and negative aside from what is noted in HPI Exam Vital Signs (past 8 hours): - 09/10/21 14:26 09/10/21 14:48 09/10/21 14:52 Temperature 98.3 F Pulse Rate 121 H 83 142 H Respiratory Rate 18 23 Blood Pressure 157/74 H Pulse Oximetry 100 99 100 Oxygen Delivery Method Room Air 09/10/21 14:52 09/10/21 15:00 09/10/21 16:41 Temperature Pulse Rate 141 H 142 H Respiratory Rate 28 H Blood Pressure 108/58 L 108/58 L Pulse Oximetry 98 Oxygen Delivery Method 09/10/21 18:08 Temperature Pulse Rate 128 H Respiratory Rate Blood Pressure 92/55 L Pulse Oximetry Oxygen Delivery Method Oxygen Delivery Method Room Air Narrative Exam Narrative: GEN: no acute distress HEENT: moist mucous membranes, PERRL NECK: trachea midline, no JVD CV: irregularly irregular, no murmurs PULM: clear bilaterally, no wheezes ABD: soft, nontender, nondistended, no organomegaly EXT: warm and well perfused, with no edema NEURO: awake, alert, oriented, no focal deficits Objective Labs Result Diagrams: 09/10/21 14:49 09/10/21 14:49 Labs: Laboratory Results - last 24 hr 09/10/21 09/10/21 09/10/21 14:49 14:49 14:49 WBC 1.6 L* RBC 3.99 L Hgb 12.6 L Hct 36.5 L MCV 91.5 MCH 31.7 MCHC 34.6 RDW 16.2 H Plt Count 89 L Neut % (Auto) Not Reportable Lymph % (Auto) Not Reportable [place] % (Auto) Not Reportable Eos % (Auto) Not Reportable Baso % (Auto) Not Reportable Lymph # (Auto) Not Reportable [place] # (Auto) Not Reportable Baso # (Auto) Not Reportable Total Counted 100 Seg Neutrophils % 51.0 Lymphocytes % (Manual) 23.0 L Atypical Lymphs % 1.0 H Monocytes % (Manual) 11.0 Eosinophils % (Manual) 14.0 H Neutrophils # (Manual) 816 L RBC Morphology See below Anisocytosis 1+ H Tear Drop Cells 1+ H PT 15.8 H INR 1.4 H APTT 30 Sodium 137 Potassium 3.7 Chloride 104 Carbon Dioxide 24 BUN 23 H Creatinine 0.84 Estimated GFR > 60 BUN/Creatinine Ratio 27.4 H Glucose 146 H Lactate Calcium 8.7 Magnesium 2.1 Total Bilirubin 0.5 AST 19 ALT 16 Alkaline Phosphatase 61 Total Creatine Kinase 39 L CK-MB (CK-2) TNP CK-MB (CK-2) Rel Index TNP Troponin I 1.170 H* NT-Pro-B Natriuret Pep Total Protein 7.3 Albumin 3.7 Globulin 3.6 Albumin/Globulin Ratio 1.0 Lipase 13 L Procalcitonin SARS-CoV-2 (PCR) 09/10/21 09/10/21 09/10/21 14:49 14:49 14:49 WBC RBC Hgb Hct MCV MCH MCHC RDW Plt Count Neut % (Auto) Lymph % (Auto) [place] % (Auto) Eos % (Auto) Baso % (Auto) Lymph # (Auto) [place] # (Auto) Baso # (Auto) Total Counted Seg Neutrophils % Lymphocytes % (Manual) Atypical Lymphs % Monocytes % (Manual) Eosinophils % (Manual) Neutrophils # (Manual) RBC Morphology Anisocytosis Tear Drop Cells PT INR APTT Sodium Potassium Chloride Carbon Dioxide BUN Creatinine Estimated GFR BUN/Creatinine Ratio Glucose Lactate 1.1 Calcium Magnesium Total Bilirubin AST ALT Alkaline Phosphatase Total Creatine Kinase CK-MB (CK-2) CK-MB (CK-2) Rel Index Troponin I NT-Pro-B Natriuret Pep 6180 H Total Protein Albumin Globulin Albumin/Globulin Ratio Lipase Procalcitonin 0.08 SARS-CoV-2 (PCR) 09/10/21 18:05 WBC RBC Hgb Hct MCV MCH MCHC RDW Plt Count Neut % (Auto) Lymph % (Auto) [place] % (Auto) Eos % (Auto) Baso % (Auto) Lymph # (Auto) [place] # (Auto) Baso # (Auto) Total Counted Seg Neutrophils % Lymphocytes % (Manual) Atypical Lymphs % Monocytes % (Manual) Eosinophils % (Manual) Neutrophils # (Manual) RBC Morphology Anisocytosis Tear Drop Cells PT INR APTT Sodium Potassium Chloride Carbon Dioxide BUN Creatinine Estimated GFR BUN/Creatinine Ratio Glucose Lactate Calcium Magnesium Total Bilirubin AST ALT Alkaline Phosphatase Total Creatine Kinase CK-MB (CK-2) CK-MB (CK-2) Rel Index Troponin I NT-Pro-B Natriuret Pep Total Protein Albumin Globulin Albumin/Globulin Ratio Lipase Procalcitonin SARS-CoV-2 (PCR) Negative Assessment & Plan Assessment & Plan narrative: Mr. Rosales is a 75M with PMH myelodysplasia, pancytopenia presenting with palpitations found to be in afib with RVR. 1. New onset atrial fibrillation with RVR -etiology may be infection -CHADSVASC2 - 1, and with thrombocytopenia for now will hold anticoagulation -check ECHO -heart rate responded well to IV dilt, but dropped blood pressure -IV digoxin with slight affect on rate -for now try oral metoprolol, and another dose of digoxin if not controlled -if this does not work may need amiodarone 2. Elevated troponin -patient denies chest pain, shortness of breath -no acute ischemia on EKG -suspect this is demand ischemia -check ECHO to eval for wall motion abnormality, EF -trend troponins -hold off on aspirin for now given myelodysplasia 2. Myelodysplasia with blasts -continue revlimid -follow up with oncology 3. Pancytopenia with neutropenia -secondary to medication vs cancer -has chronically low white count and hemoglobin -platelets appear newly worsened -monitor CBC daily -make sure platelets stable before starting anticoagulation 4. Fever -started approximately one week ago, but improved per patient -etiology not clear, he is on acyclovir and levofloxacin -cxray with possible infiltrate, so most likely etiology is a pneumonia -continue for now with continued neutropenia with neutrophils at 800 -not febrile currently 5. Constipation -metamucil, docuate, prn miralax CODE: Full Proxy: Arely Alvarez, spouse I have utilized all available resources to reconcile the patient's home medications Time Spent With Patient Critical Care time: I spent a total of [] minutes of critical care time on this patient's care today; this time is exclusive of procedural time. Quality MIPS - Admit I confirm the patient?s Advance Care Plan is present, Code status is documented, Surrogate decision maker is in patient?s record [If Yes, STOP here]: Yes
[2021-09-10] MEDS: METOPROLOL IR 25 MG TABLET PO (21:39)
[2021-09-10] MEDS: LENALIDOMIDE 10 MG 10 EACH PO (21:40)
[2021-09-10] MEDS: DOCUSATE 100 MG CAPSULE PO (22:27)
[2021-09-10] MEDS: polyethylene glycoL 3350 17 GM POWD.PACK PO (22:27)
[2021-09-10 23:26] LABS: Troponin I 0.958 ng/mL (0.01-0.034)
[2021-09-10 23:59] LABS: TSH w/ Reflex to FT4 1.99 uIU/mL (0.47-4.68)
[2021-09-11] VITALS (9 sets, daily range): BP systolic 119–139; BP diastolic 59–84; PULSE 91–128; RESP 16–23; TEMP 36.6–37.2; O2SAT 94–98
[2021-09-11] MEDS: ACETAMINOPHEN 325 MG TABLET 650 MG PO (00:13)
[2021-09-11] MEDS: DIGOXIN 500 MCG/2 ML AMPUL 250 MCG IV (00:46)
--- NOTE | 2021-09-11 01:09 | DI.CT.S_ITS ---
PROCEDURE: CT ABDOMEN PELVIS W CON INDICATIONS: abdominal pain TECHNIQUE: After the administration of intravenous contrast, axial sections acquired from the lung bases to the pubic symphysis. Coronal and sagittal reformats were performed. For radiation dose reduction, the following was used: automated exposure control, adjustment of mA and/or kV according to patient size. COMPARISON: None. FINDINGS: Images are placed online for interpretation on 09/12/2021 at 12:40. Image quality: Excellent. Lung bases: Lung bases are clear. A low density in the left ventricular apex is seen, possibly a left ventricular thrombus. The coronary arteries have atherosclerotic calcifications. Solid organs: Liver: The liver has no mass or intrahepatic biliary ductal dilatation. Biliary: The gallbladder has no gallstones, pericholecystic fluid, gallbladder wall thickening, or surrounding inflammatory change. Pancreas: The pancreas has no mass or ductal dilatation. There is no surrounding inflammation. Spleen: The spleen is enlarged. There is a wedge-shaped infarct laterally. Adrenals: No hypertrophy or nodules. Kidneys: The right kidney enhances normally. There is no enhancement of the left kidney except some rim enhancement consistent with occlusion of the left renal artery. There is a likely thrombus in the left main renal artery seen on coronal image 41. No obstructive calculus or hydronephrosis. No solid mass. No cystic mass. Peritoneum and bowel: The distal esophagus and stomach are normal. The small bowel has a normal caliber and appearance. The terminal ileum is normal. The large bowel has a normal caliber and appearance. The appendix is normal. No free fluid or air. Nodes and vessels: No retroperitoneal or mesenteric adenopathy by size criteria. The aorta has atherosclerosis with no aneurysmal dilatation. Miscellaneous: No abdominal wall mass or hernia. PELVIS: Genitourinary: The bladder has no wall thickening or mass. No bladder calcifications. Bones: The lumbar spine has multilevel degenerative changes. Status post left hip replacement. No vertebral body compression fractures. IMPRESSION: 1. Non perfusion of the left kidney. 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 2. Splenomegaly with splenic infarct. 3. Possible left ventricular thrombus. Comment: Final report is concordant with preliminary interpretation by [facility] Dictated by: Cesar Sheehan M.D. on 09/12/2021 at 12:44 Approved by: Cesar Sehehan M.D. on 09/12/2021 at 12:51
--- NOTE | 2021-09-11 01:11 | PC.NURSE ---
Addendum entered by Missy Franco R.N. 09/11/21 04:06: Report received from Radiologist, informed Dr Beasley of results. Tramadol given for continued abdominal pain. HR 80s-120s, BP 92/70(78). Original Note: Admit Note-Patient admitted to ICU room 229, A/Ox4, mildly anxious, denies chest pain or dyspnea, does have 4/10 lower abdominal pain, says he is constipated, Colace, Miralax, and prune juice given. HR 90s-130s A-fib, BBB, PO metoprolol started, IV Digoxin given as ordered. Patient has attempted to have a BM few times without success, abdominal pain is now 7/10, constant and cramping unable to rest or get comfortable, Tylenol given, reported symptoms to MD, abdominal CT ordered.
[2021-09-11] MEDS: TRAMADOL 50 MG TABLET PO (03:55)
[2021-09-11] MEDS: HEPARIN DRIP 25,000 UNIT/500 ML IV.SOLN 24 UNIT IV (04:47)
[2021-09-11] MEDS: MORPHINE 2 MG/ML INJ IV ×4 (04:59→21:08)
[2021-09-11 05:42] LABS: Hematocrit 38.1 % (41-53); Hemoglobin 12.8 g/dL (13.5-17.5); Mean Corpuscular HGB Conc 33.7 % (30-36); Mean Corpuscular Hemoglobin 31.1 PG (26-34); Mean Corpuscular Volume 92.4 fL (80-100); Platelet Count 88 X10^3/uL (150-400); Red Blood Cell Count 4.12 X10^6/uL (4.5-5.9); Red Cell Distribution Width 16.5 % (11.6-14.8)
[2021-09-11 05:45] LABS: Add Manual Diff / Slide Review YES; White Blood Cell Count 1.4 X10^3/uL (4.5-11.0)
[2021-09-11 06:17] LABS: BUN Creatinine Ratio 18.9 (6-22); Blood Urea Nitrogen 23 mg/dL (9-20); Calcium 8.6 mg/dL (8.4-10.2); Carbon Dioxide 24 mmol/L (22-32); Chloride 104 mmol/L (98-107); Estimated Glomerular Filt Rate > 60 mL/min (>60); Glucose 126 mg/dL (80-110); HEMOLYSIS < 15 (0-50); Magnesium 2.1 mg/dL (1.6-2.3); Potassium 3.7 mmol/L (3.4-5.1); Sodium 136 mmol/L (137-145)
[2021-09-11 06:30] LABS: PTT Partial Thromboplastin Tim 34 SECONDS (26.4-36.2)
[2021-09-11 06:43] LABS: Troponin I 0.757 ng/mL (0.01-0.034)
[2021-09-11] MEDS: METOPROLOL IR 25 MG TABLET PO (06:52)
[2021-09-11] MEDS: SODIUM CHLORIDE 0.9% 1,000 ML 100 ML IV (08:30)
[2021-09-11 08:48] LABS: Neutrophils Absolute Manual 518 /uL (3000-5900); RBC Morphology Normal Morphology; Total Cells Counted 100
[2021-09-11 08:49] LABS: Platelet Estimate Decreased on smear
--- NOTE | 2021-09-11 10:31 | PM.EVENT ---
Event Note Event Note (Rapid Response, Code, or fall): Evaluated patient this morning. Had an extensive discussion regarding his thrombosis and potential intervention. Explain the timeline and risks Which are already been discussed by hospitalist attending during the night. patient has been having low-grade fevers for last 1 week, abdominal discomfort for a couple of days. Patient is still not really sure about transfer and higher level of care. I offered to talk to his [id number] who is an ER physician but he says she works nights and not a good time to talk to her. I discussed with the charge nurse, we are waiting to hear back from [facility] for potential transfer. Given the complexity and multiple medical problems, we will still proceed with higher level care transfer depending on bed availability. patient seems to be clinically stable, at ICU level of care at this time. I will reach out to oncologist to discuss further regarding anticoagulation and ongoing chemotherapy. Complex clinical scenario, poor prognosis, care process extensively discussed. Full note to follow, pending transfer depending on bed availability.
[2021-09-11] MEDS: SODIUM CHLORIDE 0.9% FLUSH 10 ML IV ×2 (11:30→20:19)
[2021-09-11] MEDS: DOCUSATE 100 MG CAPSULE PO ×2 (11:30→20:18)
[2021-09-11 13:02] LABS: PTT Partial Thromboplastin Tim 34 SECONDS (26.4-36.2)
--- NOTE | 2021-09-11 14:18 | PM.EVENT ---
Event Note Event Note (Rapid Response, Code, or fall): Discussed with primary oncologist Dr. Hinojosa regarding potential recommendations. Advised to stop the chemotherapy. Transfuse platelets to keep greater than 50. Recommended to talk to vascular surgery for potential intervention for left renal thrombus and they will be the admitting provider. No further recommendations from Oncology standpoint. I did talk to [facility] transfer line. Gave all relevant information. Waiting for vascular surgery to call back. No beds available at this time. Patient relatively stable. Overall situation explained to the patient and family at bedside. I do not see echocardiogram confirming LV thrombus at this time. Probably commented on CT, final results not available at this time. Overall prognosis is guarded, continue to monitor the patient in ICU setting. Care plan explained to the patient and family. They understand the ongoing efforts of transfer. Answered all questions.
--- NOTE | 2021-09-11 14:54 | PM.PN.1 ---
Subjective Subjective Date Patient Seen: 09/11/21 Interval history: Patient had a CT scan shows thrombus in left renal artery. Patient clinically stable. Discuss with his primary oncologist. Patient continues to complain of abdominal pain and relieved only with morphine IV. Oral medications are not helping at this time. Patient explained the timeline of low-grade fevers for past 1 week and also abdominal discomfort started approximately 48 hours ago. Patient denies any headaches, no change in the color of the urine or stools. Feels tired, sleepy. Exam Vital Signs (past 8 hours): - 09/11/21 09:00 Pulse Oximetry 96 Oxygen Delivery Method Room Air Oxygen Delivery Method Room Air Oxygen Flow Rate 0 Narrative Exam Narrative: Generalized weakness, fatigued. Does seem to be in mild distress because of the pain. Able to follow commands, reasonable conversation. Abdominal discomfort and superficial and deep palpation. No apparent organomegaly. Mild tachycardia noted. Constitutional, HEENT, cardiovascular, GI, respiratory, neuro, psych examination done, positive findings as mentioned above. Objective Labs Result Diagrams: 09/11/21 04:36 09/11/21 04:36 [facility] Medical History Basal cell carcinoma Skin cancer Squamous cell carcinoma Surgical History No pertinent past surgical history Social History marital status: household members: spouse lives independently: Yes Smoking Status: Never smoker alcohol intake: current Assessment & Plan Assessment & Plan narrative: Left renal artery thrombosis, acute -pending callback from [facility] vascular surgery Department for potential transfer, ongoing anticoagulation with heparin. Discussed with primary oncologist at [facility] Dr. Barrientos, agree with the heparin, keep the platelets greater than 50. . Ongoing chemo. Atrial fibrillation with RVR, New onset, on heparin drip. Potentially contributing to thrombus. IV digoxin with slight affect on rate. If patient rate not improving with metoprolol will consider amiodarone Elevated troponin probably stress related, no further acute intervention at this time Myelodysplasia with blasts, holding Revlimid as recommended by primary oncologist Pancytopenia with neutropenia, monitor CBC daily, keep platelet count greater than 50 Fever started 1 week ago probably related to thrombosis. Patient is on prophylaxis acyclovir and levofloxacin, we will continue Constipation: Metamucil, docuate, prn miralax Potential transfer to [facility], process initiated this morning. Overall prognosis explained to at bedside. Answered all questions. Time Spent With Patient Critical Care time: I spent a total of [] minutes of critical care time on this patient's care today; this time is exclusive of procedural time. Quality VTE Deep Vein Thrombosis/Pulmonary Embolism Present on Admission: No
[2021-09-11] MEDS: HEPARIN 5,000 UNIT/ML VIAL 5000 UNIT IV ×2 (14:56→23:57)
--- NOTE | 2021-09-11 16:38 | PC.NURSE ---
am shift Pt is anxious, morphine for pain to ABD. arrived and pat is going to continue to rec heparin. gtt. LAb draw for PTT late, retimed, bolus dose IV given for PTT of 34. Recheck @ 1900. Heparin infusing @ 1400 units (28 mls) hr. Using call light for needs, poor po intake. Transfer potential to [facility], when bed available.
[2021-09-11 20:21] LABS: PTT Partial Thromboplastin Tim 37 SECONDS (26.4-36.2)
[2021-09-11] MEDS: polyethylene glycoL 3350 17 GM POWD.PACK PO (20:37)
[2021-09-12] VITALS (12 sets, daily range): BP systolic 96–111; BP diastolic 53–63; PULSE 75–100; RESP 16–17; TEMP 36.7–38.2; O2SAT 93–97
[2021-09-12] MEDS: HEPARIN DRIP 25,000 UNIT/500 ML IV.SOLN 28 UNIT IV (00:10)
[2021-09-12 02:24] LABS: Add Manual Diff / Slide Review NO; Basophils Absolute Auto 0 /uL (0-100); Basophils Percent Auto 0.8 % (0-2); Eosinophils Absolute Auto 0 /uL (0-450); Eosinophils Percent Auto 2.6 % (2-4); Hematocrit 36.9 % (41-53); Hemoglobin 12.3 g/dL (13.5-17.5); Lymphocytes Absolute Auto 500 /uL (1100-4500); Lymphocytes Percent Auto 30.7 % (25-40); Mean Corpuscular HGB Conc 33.2 % (30-36); Mean Corpuscular Hemoglobin 31.1 PG (26-34); Mean Corpuscular Volume 93.6 fL (80-100); Monocytes Absolute Auto 300 /uL (0-900); Monocytes Percent Auto 18.1 % (3-14); Neutrophils Absolute Auto 800 /uL (1500-7000); Neutrophils Percent Auto 47.8 % (50-75); Platelet Count 91 X10^3/uL (150-400); Red Blood Cell Count 3.95 X10^6/uL (4.5-5.9); Red Cell Distribution Width 16.7 % (11.6-14.8)
[2021-09-12 02:30] LABS: PTT Partial Thromboplastin Tim 67 SECONDS (26.4-36.2)
[2021-09-12 02:32] LABS: Alanine Aminotransferase 88 IU/L (<50); Albumin 3.4 g/dL (3.5-5.0); Alkaline Phosphatase 50 U/L (38-126); Aspartate Aminotransferase 81 IU/L (17-59); BUN Creatinine Ratio 15.6 (6-22); Bilirubin Total 0.8 mg/dL (0.2-1.3); Blood Urea Nitrogen 21 mg/dL (9-20); Calcium 8.2 mg/dL (8.4-10.2); Carbon Dioxide 27 mmol/L (22-32); Chloride 101 mmol/L (98-107); Estimated Glomerular Filt Rate 55 mL/min (>60); Globulin 3.3 g/dL (1.7-4.1); Glucose 122 mg/dL (80-110); HEMOLYSIS 15 (0-50); Potassium 4.1 mmol/L (3.4-5.1); Sodium 135 mmol/L (137-145); Total Protein 6.7 g/dL (6.3-8.2)
[2021-09-12 02:35] LABS: White Blood Cell Count 1.8 X10^3/uL (4.5-11.0)
[2021-09-12] MEDS: MORPHINE 2 MG/ML INJ IV (03:33)
[2021-09-12] MEDS: METOPROLOL IR 25 MG TABLET PO ×2 (06:31→14:12)
[2021-09-12] MEDS: DOCUSATE 100 MG CAPSULE PO ×2 (08:17→20:36)
[2021-09-12] MEDS: PSYLLIUM HUSK 1 PACKET PO (08:18)
[2021-09-12 09:04] LABS: PTT Partial Thromboplastin Tim 41 SECONDS (26.4-36.2)
[2021-09-12] MEDS: HEPARIN 5,000 UNIT/ML VIAL 5000 UNIT IV ×2 (09:34→15:04)
[2021-09-12 14:37] LABS: PTT Partial Thromboplastin Tim 45 SECONDS (26.4-36.2)
[2021-09-12] MEDS: HEPARIN DRIP 25,000 UNIT/500 ML IV.SOLN 40 UNIT IV (14:55)
--- NOTE | 2021-09-12 17:03 | P.PN_ITS ---
Subjective Subjective Date Patient Seen: 09/11/21 Interval history: Discussed with the Cardiology, Oncology, [place] vascular surgery-no acute intervention at this time. Had a very long conversation with Dr. Rosales who is the [id number] and the ER provider of this of this patient, explained total care process and also discharge planning. Family agrees with rate control approach, full anticoagulation for 4 weeks, cardiology follow-up, Eliquis for anticoagulation. Patient feels much better today, denies any abdominal discomfort at this time, tolerated well, no fevers no headaches. No chest pain Exam Vital Signs (past 8 hours): - 09/12/21 12:00 09/12/21 15:00 Temperature 99.1 F Pulse Rate 100 H Respiratory Rate 17 Blood Pressure 111/56 L Pulse Oximetry 95 97 Oxygen Delivery Method Room Air Oxygen Flow Rate 0 0 Oxygen Delivery Method Room Air Oxygen Flow Rate 0 Narrative Exam Narrative: Much more comfortable, not in distress, reasonable conversation. Abdominal discomfort and superficial and deep palpation much improved compared to yesterday. No apparent organomegaly. Mild tachycardia noted. Constitutional, HEENT, cardiovascular, GI, respiratory, neuro, psych examination done, positive findings as mentioned above. 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 We will stop heparin drip. Eliquis full anticoagulation risk and benefits extensively discussed. Family and patient both understand and agree. Atrial fibrillation with RVR, rate control recommended, anticoagulation for 4 weeks before considering any cardioversion, metoprolol dose increased. Elevated troponin probably stress related, no further acute intervention at this time Myelodysplasia with blasts, holding Revlimid as recommended by primary oncologist Pancytopenia with neutropenia, monitor CBC daily, keep platelet count greater than 50 Fever started 1 week ago probably related to thrombosis. Patient is on prophylaxis acyclovir and levofloxacin, we will continue Constipation: Metamucil, docuate, prn miralax No further escalation of the care required at this time, family agrees with the plan. Care process extensively discussed with family and physician in the family, answered all questions Time Spent With Patient Critical Care time: I spent a total of [] minutes of critical care time on this patient's care today; this time is exclusive of procedural time. Quality VTE Deep Vein Thrombosis/Pulmonary Embolism Present on Admission: No
[2021-09-12] MEDS: APIXABAN 5 MG TABLET 10 MG PO (17:19)
[2021-09-12] MEDS: METOPROLOL IR 25 MG TABLET 50 MG PO (17:50)
[2021-09-12] MEDS: ACETAMINOPHEN 325 MG TABLET 650 MG PO (19:36)
[2021-09-12] MEDS: SODIUM CHLORIDE 0.9% FLUSH 10 ML IV (20:36)
[2021-09-12] MEDS: SODIUM CHLORIDE 0.9% 500 ML 1000 ML IV (20:36)
--- NOTE | 2021-09-12 20:59 | PC.NURSE ---
Night Sift Notes-Patient is febrile, Temp 100.7, HR 80s-90s A-fib on telemetry, BP 96/54(69) PO metoprolol held. Tylenol given, denies pain. Vital signs reported to Prasanna Delcid NP, orders received for 500ml NS bolus and restart patients routine PO Levaquin to start in am.
[2021-09-13 06:00] VITALS: BP 94/55; PULSE 86; RESP 17; TEMP 37.3; O2SAT 95
[2021-09-13 06:30] VITALS: O2SAT 955
[2021-09-13 08:04] VITALS: BP 99/55; PULSE 91; RESP 16; TEMP 37; O2SAT 98
[2021-09-13] MEDS: DOCUSATE 100 MG CAPSULE PO (08:53)
[2021-09-13] MEDS: METOPROLOL IR 25 MG TABLET 50 MG PO (08:53)
[2021-09-13] MEDS: levoFLOXacin 250 MG TABLET 750 MG PO (08:53)
[2021-09-13] MEDS: APIXABAN 5 MG TABLET 10 MG PO (08:53)
[2021-09-13] MEDS: SODIUM CHLORIDE 0.9% FLUSH 10 ML IV (08:58)
[2021-09-13 09:06] LABS: Add Manual Diff / Slide Review NO; Basophils Absolute Auto 0 /uL (0-100); Basophils Percent Auto 0.9 % (0-2); Eosinophils Absolute Auto 100 /uL (0-450); Eosinophils Percent Auto 3.8 % (2-4); Hemoglobin 11.5 g/dL (13.5-17.5); Lymphocytes Absolute Auto 500 /uL (1100-4500); Lymphocytes Percent Auto 24.2 % (25-40); Mean Corpuscular HGB Conc 33.7 % (30-36); Mean Corpuscular Hemoglobin 31.1 PG (26-34); Mean Corpuscular Volume 92.2 fL (80-100); Monocytes Absolute Auto 200 /uL (0-900); Monocytes Percent Auto 10.1 % (3-14); Neutrophils Absolute Auto 1300 /uL (1500-7000); Platelet Count 115 X10^3/uL (150-400); Red Blood Cell Count 3.69 X10^6/uL (4.5-5.9); Red Cell Distribution Width 16.5 % (11.6-14.8); White Blood Cell Count 2.1 X10^3/uL (4.5-11.0)
[2021-09-13 09:11] LABS: INR 1.9 (0.9-1.3); Prothrombin Time 21.6 SECONDS (10.1-12.7)
[2021-09-13 09:19] LABS: Alanine Aminotransferase 46 IU/L (<50); Albumin 3.1 g/dL (3.5-5.0); Albumin Globulin Ratio 0.9 (1.0-2.8); Alkaline Phosphatase 46 U/L (38-126); Aspartate Aminotransferase 24 IU/L (17-59); BUN Creatinine Ratio 14.9 (6-22); Bilirubin Total 0.5 mg/dL (0.2-1.3); Blood Urea Nitrogen 24 mg/dL (9-20); Calcium 8.1 mg/dL (8.4-10.2); Carbon Dioxide 28 mmol/L (22-32); Chloride 101 mmol/L (98-107); Estimated Glomerular Filt Rate 45 mL/min (>60); Globulin 3.4 g/dL (1.7-4.1); Glucose 141 mg/dL (80-110); HEMOLYSIS < 15 (0-50); Potassium 3.8 mmol/L (3.4-5.1); Sodium 135 mmol/L (137-145); Total Protein 6.5 g/dL (6.3-8.2)
[2021-09-13 12:00] VITALS: BP 103/65; PULSE 78; RESP 18; TEMP 36.6; O2SAT 99
--- NOTE | 2021-09-13 12:19 | PC.NURSE ---
Addendum entered by Araceli Spivey R.N. 09/13/21 13:04: 1304 - Patient discharged home with all belongings and paperwork. Wheeled out of building by nursing staff. Original Note: Patient discharging home per order. Alert and oriented with pleasant affect. at bedside for discharge teaching. All discharge instructions and medications gone over with patient and by nurse and pharmacist. Patient and state awareness that they are to get cbc and bmp drawn tomorrow and have paper copy of order in hand. IV removed per protocol without complication and tele box removed. states she has patient's chemo medications that were previously stored in pharmacy. Patient getting belongings together and staff will wheel patient out of building when ready.
--- NOTE | 2021-09-13 12:35 | PM.DS.1 ---
History of Present Illness History of Present Illness Date Patient Seen: 09/13/21 Time Patient Seen: 21:30 Chief complaint: High heart rate/ low blood pressure- sent by [employer] Narrative: Mr. Ivey is a 75M with PMH myelodysplastic syndrome on Revlimid who presents today with tachycardia and palpitations. He states last week he developed a fever as high as 101. He saw physician and was found to have neutropenia, which is common for him. He was started on levofloxacin and acyclovir. He was thought to possibly have a pneumonia due to an xray with questionable findings and a slight cough. His fever improved and he defervesced about 2 days ago. However, he then noted he developed fluttering in his chest. He had no chest pain, no shortness of breath. He was told to contact EMS. In the ED workup was done, vitals notable for normal temp, heart rate in the 120s-140s, respiratory rate normal, systolic blood pressure in 90s-150s. He was noted to be in atrial fibrillation with RVR on EKG. He was ordered for diltiazem push x1, he dropped pressure to the systolic 80s-90s, and this was stopped. His heart rate did improve temporarily. He was then tried on digoxin with some effect on his heart rate. Cardiology was contacted who recommended trying oral metoprolol and if that was not successful to try amiodarone. Labs notable for WBC 1.6, 51% PMNs, hgb 12.6, plts 89. creatinine 0.84. INR 1.4. Trop 1.17, BNP 6180. Lactate 1.1. Procal 0.08. Chest xray showed bibasilar opacities overal nonspecific unchanged from prior. He was admitted for further treatment. 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 Elevated troponin probably demand ischemia Myelodysplasia with blasts, holding Revlimid as recommended by primary oncologist Pancytopenia with neutropenia, monitor CBC Fever of unknown origin most likely secondary to thrombosis Hospital Course: This morning BMP shows creatinine of 1.6 elevated from previous day 1.3. I had an extensive discussion with the patient, patient's , [id number] who is a ER physician regarding the follow-up. Patient will like to be discharged today, will get his BMP done at [facility] and his primary care physician will follow up on this. I explained the potential risk of worsening kidney functions, encouraged oral intake, avoid any nephrotoxic medication. Based on tomorrow's labs patient probably need to be evaluated by Nephrology. This care plan extensively discussed with the patient and family, agreed with the follow-up and discharge with caution. 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 We will stop heparin drip. Eliquis full anticoagulation risk and benefits extensively discussed. Family and patient both understand and agree. Atrial fibrillation with RVR, rate control recommended, anticoagulation for 4 weeks before considering any cardioversion, metoprolol dose increased. Elevated troponin probably stress related, no further acute intervention at this time Myelodysplasia with blasts, holding Revlimid as recommended by primary oncologist Pancytopenia with neutropenia, monitor CBC daily, keep platelet count greater than 50 Fever started 1 week ago probably related to thrombosis. Patient is on prophylaxis acyclovir and levofloxacin, we will continue Constipation: Metamucil, docuate, prn miralax Imaging Studies: PROCEDURE: CT ABDOMEN PELVIS W CON INDICATIONS: abdominal pain TECHNIQUE: After the administration of intravenous contrast, axial sections acquired from the lung bases to the pubic symphysis. Coronal and sagittal reformats were performed. For radiation dose reduction, the following was used: automated exposure control, adjustment of mA and/or kV according to patient size. COMPARISON: None. FINDINGS: Images are placed online for interpretation on 09/12/2021 at 12:40. Image quality: Excellent. Lung bases: Lung bases are clear. A low density in the left ventricular apex is seen, possibly a left ventricular thrombus. The coronary arteries have atherosclerotic calcifications. Solid organs: Liver: The liver has no mass or intrahepatic biliary ductal dilatation. Biliary: The gallbladder has no gallstones, pericholecystic fluid, gallbladder wall thickening, or surrounding inflammatory change. Pancreas: The pancreas has no mass or ductal dilatation. There is no surrounding inflammation. Spleen: The spleen is enlarged. There is a wedge-shaped infarct laterally. Adrenals: No hypertrophy or nodules. Kidneys: The right kidney enhances normally. There is no enhancement of the left kidney except some rim enhancement consistent with occlusion of the left renal artery. There is a likely thrombus in the left main renal artery seen on coronal image 41. No obstructive calculus or hydronephrosis. No solid mass. No cystic mass. Peritoneum and bowel: The distal esophagus and stomach are normal. The small bowel has a normal caliber and appearance. The terminal ileum is normal. The large bowel has a normal caliber and appearance. The appendix is normal. No free fluid or air. Nodes and vessels: No retroperitoneal or mesenteric adenopathy by size criteria. The aorta has atherosclerosis with no aneurysmal dilatation. Miscellaneous: No abdominal wall mass or hernia. PELVIS: Genitourinary: The bladder has no wall thickening or mass. No bladder calcifications. Bones: The lumbar spine has multilevel degenerative changes. Status post left hip replacement. No vertebral body compression fractures. IMPRESSION: 1. Non perfusion of the left kidney. 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 2. Splenomegaly with splenic infarct. 3. Possible left ventricular thrombus. Comment: Final report is concordant with preliminary interpretation by [facility] Dictated by: Cesar Sheehan M.D. on 09/12/2021 at 12:44 Approved by: Cesar Sheehan M.D. on 09/12/2021 at 12:51 Name: EDMUND IVEY Study Date: 09/11/2021 Height: 72 in : :[facility] ReadingLocation: Weight: 191 lb : : Gender: Male BSA: 2.1 m2 : :: 1945 Age: 75 yrs BP: 142/101 mmHg: :Reason For Study: ATRIAL FIBRILLATION : :Ordering Physician: BLAKE : :FRANNIE Performed By: Cris Bush : :Referring: FRANNIE LOZANO : + + Interpretation Summary There is mild concentric left ventricular hypertrophy. The ejection fraction is estimated to be 40-45%. Diastolic function could not be accurately assessed due to atrial fibrillation. The right ventricle is mildly dilated. The right ventricular systolic function is normal. Moderate biatrial enlargement. There is moderate mitral regurgitation. There is trace aortic regurgitation. There is mild tricuspid regurgitation. The right ventricular systolic pressure is estimated to be at least 53 mmHg based on an estimated right atrial pressure of 15 mm Hg. The ascending aorta is mildly enlarged. Procedure: A two-dimensional transthoracic echocardiogram with color flow and Doppler was performed. The study quality was technically adequate. There is no prior echocardiogram noted for this patient. The patient was in atrial fibrillation with heart rates between 89-134 bpm during the exam. Left Ventricle: The left ventricle is normal in size. There is mild concentric left ventricular hypertrophy. The ejection fraction is estimated to be 40-45%. Diastolic function could not be accurately assessed due to atrial fibrillation. Right Ventricle: The right ventricle is mildly dilated. The right ventricular systolic function is normal. Atria: The left atrium is moderately dilated. The right atrium is moderately dilated. There is no Doppler evidence for an interatrial shunt. Mitral Valve: The mitral valve is normal in structure and function. There is moderate mitral regurgitation. Aortic Valve: The aortic valve is trileaflet. The aortic valve opens well. There is no aortic valve stenosis. There is trace aortic regurgitation. Tricuspid Valve: The tricuspid valve is normal in structure and function. There is mild tricuspid regurgitation. The right ventricular systolic pressure is estimated to be at least 53 mmHg based on an estimated right atrial pressure of 15 mm Hg. Pulmonic Valve: The pulmonic valve leaflets are thin and pliable; valve motion is normal. There is no pulmonic valvular regurgitation. Great Vessels: The aortic root is mildly dilated. The ascending aorta is mildly enlarged. The IVC is dilated (diameter is greater than 2.1 cm) and it collapses less than 50% with a sniff. This suggests a high right atrial pressure of 15 mm Hg. Pericardium/ Pleura There is no pericardial effusion. MMode/2D Measurements & Calculations LVIDd: 5.3 cm LVOT diam: 2.5 cm LVIDs: 4.0 cm Ao root diam: 4.0 cm FS: 25.3 % asc Aorta Diam: 4.0 cm EPSS: 0.94 cm Ao Arch Diam (Prox Trans): 3.2 cm IVSd: 1.2 cm LVPWd: 1.1 cm LV díaz. diameter/BSA (cm/m^2): 2.5 LV sys. diameter/BSA (cm/m^2): 1.9 LA A2 area: 45.2 cm2 RA long axis: 7.1 cm LA A4 area: 40.7 cm2 RA area: 38.7 cm2 LA length (vol): 8.0 cm RA vol: 178.9 ml LA vol: 193.9 ml RA : 85.7 ml/m2 LA vol index: 92.8 ml/m2 IVC diam: 2.3 cm RVD1 (basal): 5.4 cm RVD2 (mid): 3.9 cm TAPSE: 2.3 cm Doppler Measurements & Calculations Ao V2 max: 126.1 cm/sec LVOT Max Farhad: 76.0 cm/sec Ao V2 mean: 96.2 cm/sec LV V1 max P.3 mmHg Ao max P.4 mmHg LV V1 VTI: 13.0 cm Ao mean P.1 mmHg JACK(I,D): 2.8 cm2 Ao V2 VTI: 22.5 cm JACK(V,D): 2.9 cm2 sev ratio: 0.58 JACK indexed to BSA (cm^2/m^2): 1.3 MV E max farhad: 91.8 cm/sec TR max farhad: 264.1 cm/sec MV A max farhad: 2.3 cm/sec TR max P.8 mmHg MV E/A: 40.1 PA V2 max: 88.3 cm/sec Med Peak E' Farhad: 7.4 cm/sec PA V2 mean: 54.9 cm/sec E/E' med: 12.4 PA mean P.4 mmHg Lat Peak E' Farhad: 13.1 cm/sec PA Accel Time: 0.04 sec E/E' lat: 7.0 E/e' average: 9.7 MV dec time: 0.19 sec SV(LVOT): 63.0 ml Reading Physician:09:47 AM PROCEDURE: XR CHEST 1V INDICATIONS: chest pain TECHNIQUE: One view of the chest was acquired. COMPARISON: [facility] ([place]), CR, XR CHEST 2V, 09/05/2021, 11:45. FINDINGS: Surgical changes and devices: None. Lungs and pleura: Coarsened appearance of bibasilar opacities. Mediastinum: Mediastinal contours appear normal. Heart size is enlarged. Bones and chest wall: No suspicious bony lesions. Overlying soft tissues appear unremarkable. IMPRESSION: Coarsened bibasilar opacities, overall nonspecific. This could be related to atelectasis, dependent edema or potentially developing airspace disease. It is relatively unchanged compared to prior exam. Dictated by: Leydi Toribio M.D. on 09/10/2021 at 15:55 Approved by: Leydi Toribio M.D. on 09/10/2021 at 15:55 Status at Discharge Cognitive/behavioral status at discharge: oriented and calm Exam Vital Signs (past 8 hours): - 09/13/21 06:00 09/13/21 06:30 09/13/21 08:04 Temperature 99.2 F 98.6 F Pulse Rate 86 91 H Respiratory Rate 17 16 Blood Pressure 94/55 L 99/55 L Pulse Oximetry 95 955 H 98 Oxygen Delivery Method Room Air Oxygen Flow Rate 0 0 09/13/21 12:00 Temperature 97.9 F Pulse Rate 78 Respiratory Rate 18 Blood Pressure 103/65 Pulse Oximetry 99 Oxygen Delivery Method Oxygen Flow Rate 0 Oxygen Delivery Method Room Air Oxygen Flow Rate 0 Narrative Exam Narrative: Much more comfortable, not in distress, reasonable conversation. Abdominal discomfort and superficial and deep palpation much improved compared to yesterday. No apparent organomegaly. Mild tachycardia noted. Constitutional, HEENT, cardiovascular, GI, respiratory, neuro, psych examination done, positive findings as mentioned above. Objective Labs Result Diagrams: 09/13/21 08:55 09/13/21 08:55 Labs: Laboratory Results - last 24 hr 09/12/21 09/13/21 09/13/21 14:19 08:55 08:55 WBC 2.1 L RBC 3.69 L Hgb 11.5 L Hct 34.0 L MCV 92.2 MCH 31.1 MCHC 33.7 RDW 16.5 H Plt Count 115 L Neut % (Auto) 61.0 Lymph % (Auto) 24.2 L Maries % (Auto) 10.1 Eos % (Auto) 3.8 Baso % (Auto) 0.9 Neut # (Auto) 1300 L Lymph # (Auto) 500 L Maries # (Auto) 200 Eos # (Auto) 100 Baso # (Auto) 0 PT 21.6 H D INR 1.9 H APTT 45 H Sodium Potassium Chloride Carbon Dioxide BUN Creatinine Estimated GFR BUN/Creatinine Ratio Glucose Calcium Total Bilirubin AST ALT Alkaline Phosphatase Total Protein Albumin Globulin Albumin/Globulin Ratio 09/13/21 08:55 WBC RBC Hgb Hct MCV MCH MCHC RDW Plt Count Neut % (Auto) Lymph % (Auto) Maries % (Auto) Eos % (Auto) Baso % (Auto) Neut # (Auto) Lymph # (Auto) Maries # (Auto) Eos # (Auto) Baso # (Auto) PT INR APTT Sodium 135 L Potassium 3.8 Chloride 101 Carbon Dioxide 28 BUN 24 H Creatinine 1.61 H Estimated GFR 45 L BUN/Creatinine Ratio 14.9 Glucose 141 H Calcium 8.1 L Total Bilirubin 0.5 AST 24 ALT 46 Alkaline Phosphatase 46 Total Protein 6.5 Albumin 3.1 L Globulin 3.4 Albumin/Globulin Ratio 0.9 L PFSH Medical History Basal cell carcinoma Skin cancer Squamous cell carcinoma Surgical History No pertinent past surgical history Social History marital status: household members: spouse lives independently: Yes Smoking Status: Never smoker alcohol intake: current Discharge Plan Discharge Plan Patient Disposition: Home Provider Discharge Comment: Follow up with PCP Dr. Isac Roy - Tomorrow and Next week Follow up with Dr. Butler (Cardiology) - Next week Follow up Oncology (Dr. Laird) recommended - Next 2 weeks Follow up with Nephrology - Referral to send by PCP (Dr. Ho) Nursing Discharge Comment: Anticoagulation Education and medication Reconciliation Discharge orders & Medications Prescriptions: New tramadol 50 mg Tablet 50 mg PO Q6H PRN (Reason: Pain, Moderate (4-6)) 7 Days Qty: 20 0RF metoprolol tartrate 25 mg Tablet 50 mg PO BID 30 Days Qty: 120 2RF Eliquis 5 mg Tablet 5 mg PO BID 30 Days Qty: 60 2RF Rx Instructions: Please start on 09/19 after stopping 10MG BID Dosing Eliquis 5 mg Tablet 10 mg PO BID 6 Days Qty: 24 0RF Continued diphenhydramine HCl [Benadryl Allergy] 25 mg Tablet 1 cap DAILY acyclovir 400 mg Tablet 400 mg PO BID Qty: 60 3RF levofloxacin 750 mg Tablet 750 mg PO DAILY Discontinued lenalidomide [Revlimid] 10 mg Capsule 10 mg PO DAILY Qty: 21 3RF Rx Instructions: swallow whole with glass of water; do not open, crush, chew , break, or dissolve Medication counseling provided by Pharmacist: Yes Follow up/Referrals: Balbir Ho MD [Non-Staff] - 09/17/21 (Need Nephrology Follow up for CKD vs JOCELYN - Renal Artery Thrombosis) Isac Roy MD [Primary Care Provider] - 09/14/21 (Follow up on BMP and Referral to Nephrology if needed. ) Other Ambulatory Orders: Basic Metabolic Panel (Stat) Timeframe: 3 Days Facility: [facility] - Location: Laboratory Ordered By: Dee Kat Complete Blood Count AUTO DIFF (Routine) Timeframe: 3 Days Facility: [facility] - Location: Laboratory Ordered By: Dee Kat Diet/Activity/Treatments Diet: Diet as Tolerated Visit Report/Discharge Packet Instructions: DI for Atrial Fibrillation Discharge Data Primary Care Provider: Isac Roy Quality VTE Deep Vein Thrombosis/Pulmonary Embolism Present on Admission: No
--- NOTE | 2021-09-13 15:39 | CM.DPNOTE ---
DC Note This CM team following closely for last 48 hrs as medical plan of care unfolded. Patient and spouse denied needs from CM team and patient's RN and discharging doctor agreed Plan: DC home w/spouse to assist and close outpatient follow up JW
== END 2021-09-13 13:04 | disposition home or self-care (01) | DRG 308 ==
LOC: ED 17:10 → AC 17:29 → ICU 17:53
PROVIDERS: Internal Medicine; Admitting Provider Family Medicine; Emergency Provider Emergency Medicine; Family Provider Family Medicine; PCP Family Medicine; Referring Provider Emergency Medicine; Visit Provider Family Medicine
DX: I48.91 Unspecified atrial fibrillation (principal); D61.810 Antineoplastic chemotherapy induced pancytopenia; N28.0 Ischemia and infarction of kidney; I74.8 Embolism and thrombosis of other arteries; I24.8 Other forms of acute ischemic heart disease; D46.Z Other myelodysplastic syndromes; K59.00 Constipation, unspecified; Z20.822 Contact with and (suspected) exposure to COVID-19
CPT/HCPCS: 36415; 71045; 74177; 80048; 80053; 82550; 83605; 83690; 83735; 83880; 84145; 84443; 84484; 85007; 85025; 85610; 85730; 87040; 87635; 87797; 93005; 93010; 93306; 96374; 96375; 99284; C9803; J1160; J1644; J2270; Q9967

== ENCOUNTER → 2021-09-14 11:04 | Outpatient (CLI) | payer MEDICARE, OTHER, SELFPAY ==
[2021-09-10 19:41] VITALS: BMI 25.2
[2021-09-14 19:06] LABS: Add Manual Diff / Slide Review NO; Basophils Absolute Auto 0 /uL (0-100); Basophils Percent Auto 0.4 % (0-2); Eosinophils Absolute Auto 100 /uL (0-450); Eosinophils Percent Auto 6.6 % (2-4); Hematocrit 33.8 % (41-53); Hemoglobin 11.4 g/dL (13.5-17.5); Lymphocytes Absolute Auto 500 /uL (1100-4500); Lymphocytes Percent Auto 23.5 % (25-40); Mean Corpuscular HGB Conc 33.7 % (30-36); Mean Corpuscular Hemoglobin 30.9 PG (26-34); Mean Corpuscular Volume 91.7 fL (80-100); Monocytes Absolute Auto 200 /uL (0-900); Monocytes Percent Auto 7.2 % (3-14); Neutrophils Absolute Auto 1400 /uL (1500-7000); Neutrophils Percent Auto 62.3 % (50-75); Platelet Count 154 X10^3/uL (150-400); Red Blood Cell Count 3.69 X10^6/uL (4.5-5.9); Red Cell Distribution Width 16.8 % (11.6-14.8); White Blood Cell Count 2.2 X10^3/uL (4.5-11.0)
[2021-09-14 19:10] LABS: Alanine Aminotransferase 35 IU/L (<50); Alkaline Phosphatase 55 U/L (38-126); Aspartate Aminotransferase 20 IU/L (17-59); BUN Creatinine Ratio 16.3 (6-22); Bilirubin Total 0.3 mg/dL (0.2-1.3); Blood Urea Nitrogen 25 mg/dL (9-20); Carbon Dioxide 28 mmol/L (22-32); Chloride 100 mmol/L (98-107); Estimated Glomerular Filt Rate 48 mL/min (>60); Globulin 3.1 g/dL (1.7-4.1); Glucose 130 mg/dL (80-110); HEMOLYSIS < 15 (0-50); Potassium 4.5 mmol/L (3.4-5.1); Sodium 137 mmol/L (137-145); Total Protein 6.1 g/dL (6.3-8.2)
== END ==
PROVIDERS: Family Provider Family Medicine; PCP Family Medicine; Visit Provider Family Medicine
DX: N17.9 Acute kidney failure, unspecified (principal)
CPT/HCPCS: 80053; 85025

== ENCOUNTER → 2021-12-10 07:02 | Outpatient (CLI) | payer MEDICARE, OTHER, SELFPAY ==
[2021-09-10 19:41] VITALS: BMI 25.2
[2021-12-10 21:20] LABS: COVID19 - ORCAS (NP or Nasal) Negative (Negative)
== END ==
PROVIDERS: Family Provider Family Medicine; PCP Family Medicine; Visit Provider Family Medicine
DX: Z20.822 Contact with and (suspected) exposure to COVID-19 (principal)
CPT/HCPCS: C9803; U0003

== ENCOUNTER → 2022-12-16 13:00 | Outpatient (CLI) | payer OTHER, MEDICARE, SELFPAY ==
[2021-09-10 19:41] VITALS: BMI 25.2
[2022-12-16 20:02] LABS: Hematocrit 24.7 % (41-53); Hemoglobin 8.6 g/dL (13.5-17.5); Mean Corpuscular HGB Conc 34.7 % (30-36); Mean Corpuscular Hemoglobin 31.1 PG (26-34); Mean Corpuscular Volume 89.8 fL (80-100); Platelet Count 249 X10^3/uL (150-400); Red Blood Cell Count 2.75 X10^6/uL (4.5-5.9); Red Cell Distribution Width 16.2 % (11.6-14.8)
[2022-12-16 20:58] LABS: Add Manual Diff / Slide Review YES; White Blood Cell Count 1.1 X10^3/uL (4.5-11.0)
[2022-12-16 21:09] LABS: Neutrophils Absolute Manual 704 /uL (3000-5900); Total Cells Counted 100
[2022-12-16 21:10] LABS: Anisocytosis 1+
== END ==
PROVIDERS: Family Provider Family Medicine; PCP Family Medicine; Visit Provider Family Medicine
DX: D46.9 Myelodysplastic syndrome, unspecified (principal)
CPT/HCPCS: 85007; 85025

== ENCOUNTER → 2022-12-19 13:28 | Outpatient (CLI) | payer OTHER, MEDICARE, SELFPAY ==
[2021-09-10 19:41] VITALS: BMI 25.2
[2022-12-19 19:52] LABS: Hematocrit 22.1 % (41-53); Hemoglobin 7.7 g/dL (13.5-17.5); Mean Corpuscular HGB Conc 34.6 % (30-36); Mean Corpuscular Hemoglobin 30.8 PG (26-34); Mean Corpuscular Volume 89.1 fL (80-100); Platelet Count 199 X10^3/uL (150-400); Red Blood Cell Count 2.48 X10^6/uL (4.5-5.9); Red Cell Distribution Width 15.8 % (11.6-14.8)
[2022-12-19 20:18] LABS: Add Manual Diff / Slide Review YES; White Blood Cell Count 1.2 X10^3/uL (4.5-11.0)
[2022-12-19 20:22] LABS: Neutrophils Absolute Manual 948 /uL (3000-5900); Total Cells Counted 100
[2022-12-19 20:24] LABS: Anisocytosis 1+; Ovalocytes 1+
== END ==
PROVIDERS: Family Provider Family Medicine; PCP Family Medicine; Visit Provider Family Medicine
DX: D46.9 Myelodysplastic syndrome, unspecified (principal)
CPT/HCPCS: 85007; 85025

== ENCOUNTER → 2022-12-23 12:30 | Outpatient (CLI) | payer OTHER, MEDICARE, SELFPAY ==
[2021-09-10 19:41] VITALS: BMI 25.2
[2022-12-23 19:41] LABS: Add Manual Diff / Slide Review NO; Basophils Absolute Auto 0 /uL (0-100); Basophils Percent Auto 0.8 % (0-2); Eosinophils Absolute Auto 0 /uL (0-450); Eosinophils Percent Auto 0.8 % (2-4); Lymphocytes Absolute Auto 200 /uL (1100-4500); Lymphocytes Percent Auto 19.6 % (25-40); Mean Corpuscular HGB Conc 34.2 % (30-36); Mean Corpuscular Hemoglobin 31.5 PG (26-34); Monocytes Absolute Auto 100 /uL (0-900); Monocytes Percent Auto 8.3 % (3-14); Neutrophils Absolute Auto 800 /uL (1500-7000); Neutrophils Percent Auto 70.5 % (50-75); Platelet Count 194 X10^3/uL (150-400); Red Blood Cell Count 2.19 X10^6/uL (4.5-5.9)
[2022-12-23 19:49] LABS: Hemoglobin 6.9 g/dL (13.5-17.5); White Blood Cell Count 1.2 X10^3/uL (4.5-11.0)
[2022-12-23 19:50] LABS: Hematocrit 20.2 % (41-53)
== END ==
PROVIDERS: Family Provider Family Medicine; PCP Family Medicine; Visit Provider Family Medicine
DX: D46.9 Myelodysplastic syndrome, unspecified (principal)
CPT/HCPCS: 85025

== ENCOUNTER → 2023-01-02 12:00 | Outpatient (CLI) | payer OTHER, MEDICARE, SELFPAY ==
[2021-09-10 19:41] VITALS: BMI 25.2
[2023-01-02 20:10] LABS: Add Manual Diff / Slide Review NO; Basophils Absolute Auto 0 /uL (0-100); Basophils Percent Auto 0.6 % (0-2); Eosinophils Absolute Auto 0 /uL (0-450); Eosinophils Percent Auto 0.9 % (2-4); Lymphocytes Absolute Auto 200 /uL (1100-4500); Mean Corpuscular HGB Conc 34.3 % (30-36); Mean Corpuscular Hemoglobin 31.2 PG (26-34); Mean Corpuscular Volume 90.9 fL (80-100); Monocytes Absolute Auto 100 /uL (0-900); Monocytes Percent Auto 6.8 % (3-14); Neutrophils Absolute Auto 600 /uL (1500-7000); Neutrophils Percent Auto 66.7 % (50-75); Platelet Count 148 X10^3/uL (150-400); Red Blood Cell Count 2.08 X10^6/uL (4.5-5.9); Red Cell Distribution Width 16.6 % (11.6-14.8)
[2023-01-02 20:20] LABS: Hemoglobin 6.5 g/dL (13.5-17.5); White Blood Cell Count 0.8 X10^3/uL (4.5-11.0)
[2023-01-02 20:21] LABS: Hematocrit 18.9 % (41-53)
== END ==
PROVIDERS: Family Medicine; Family Provider Family Medicine; PCP Family Medicine
DX: D46.9 Myelodysplastic syndrome, unspecified (principal)
CPT/HCPCS: 85025

== ENCOUNTER → 2023-01-09 11:34 | Outpatient (CLI) | payer OTHER, MEDICARE, SELFPAY ==
[2023-01-09 10:06] VITALS: BMI 25.2
[2023-01-09 19:29] LABS: Hematocrit 24.4 % (41-53); Hemoglobin 8.3 g/dL (13.5-17.5); Mean Corpuscular HGB Conc 34.1 % (30-36); Mean Corpuscular Hemoglobin 31.1 PG (26-34); Mean Corpuscular Volume 91.2 fL (80-100); Platelet Count 165 X10^3/uL (150-400); Red Blood Cell Count 2.68 X10^6/uL (4.5-5.9); Red Cell Distribution Width 16.4 % (11.6-14.8)
[2023-01-09 19:37] LABS: White Blood Cell Count 1.3 X10^3/uL (4.5-11.0)
== END ==
PROVIDERS: Family Provider Family Medicine; PCP Family Medicine; Visit Provider Family Medicine
DX: D46.9 Myelodysplastic syndrome, unspecified (principal)
CPT/HCPCS: 85027

== ENCOUNTER → 2023-01-24 10:41 | Outpatient (CLI) | payer OTHER, MEDICARE, SELFPAY ==
[2023-01-09 10:06] VITALS: BMI 25.2
[2023-01-24 11:51] LABS: Basophils Absolute Auto 0 /uL (0-100); Basophils Percent Auto 1.4 % (0-2); Eosinophils Absolute Auto 0 /uL (0-450); Eosinophils Percent Auto 1.1 % (2-4); Lymphocytes Absolute Auto 400 /uL (1100-4500); Lymphocytes Percent Auto 19.9 % (25-40); Mean Corpuscular HGB Conc 34.6 % (30-36); Mean Corpuscular Hemoglobin 32.1 PG (26-34); Mean Corpuscular Volume 92.9 fL (80-100); Monocytes Absolute Auto 100 /uL (0-900); Neutrophils Absolute Auto 1400 /uL (1500-7000); Neutrophils Percent Auto 70.6 % (50-75); Platelet Count 198 X10^3/uL (150-400); Red Blood Cell Count 2.11 X10^6/uL (4.5-5.9); Red Cell Distribution Width 17.7 % (11.6-14.8)
[2023-01-24 12:02] LABS: Add Manual Diff / Slide Review SLIDE REVIEW; Hematocrit 19.6 % (41-53); Hemoglobin 6.8 g/dL (13.5-17.5)
[2023-01-24 12:13] LABS: Anisocytosis 1+
== END ==
PROVIDERS: Family Provider Family Medicine; PCP Family Medicine; Referring Provider Family Medicine; Visit Provider Family Medicine
DX: D46.9 Myelodysplastic syndrome, unspecified (principal); C44.92 Squamous cell carcinoma of skin, unspecified
CPT/HCPCS: 85025

== ENCOUNTER → 2023-02-11 07:45 | Outpatient (CLI) | payer OTHER, MEDICARE, SELFPAY ==
[2023-01-09 10:06] VITALS: BMI 25.2
[2023-02-11 20:15] LABS: Hematocrit 22.4 % (41-53); Hemoglobin 7.5 g/dL (13.5-17.5); Mean Corpuscular HGB Conc 33.3 % (30-36); Mean Corpuscular Hemoglobin 32.1 PG (26-34); Mean Corpuscular Volume 96.5 fL (80-100); Platelet Count 183 X10^3/uL (150-400); Red Blood Cell Count 2.32 X10^6/uL (4.5-5.9); Red Cell Distribution Width 26.8 % (11.6-14.8); White Blood Cell Count 2.5 X10^3/uL (4.5-11.0)
== END ==
PROVIDERS: Family Provider Family Medicine; PCP Family Medicine; Visit Provider Family Medicine
DX: D46.9 Myelodysplastic syndrome, unspecified (principal)
CPT/HCPCS: 85027

== ENCOUNTER 2023-02-27 15:14 | Emergency (ER) | payer OTHER, MEDICARE, SELFPAY ==
[2023-01-09 10:06] VITALS: BMI 25.2
[2023-02-27 15:19] VITALS: BP 118/56; PULSE 98; RESP 18; TEMP 37; O2SAT 96; BMI 27.1
--- NOTE | 2023-02-27 16:40 | DI.CT.S_ITS ---
PROCEDURE: CT HEAD/BRAIN WO CON INDICATIONS: Head injury on Eliquis TECHNIQUE: Noncontrast 4.5 mm thick angled axial sections acquired from the foramen magnum to the vertex, with coronal and sagittal reformats. For radiation dose reduction, the following was used: automated exposure control, adjustment of mA and/or kV according to patient size. COMPARISON: None. FINDINGS: Image quality: Diagnostic. CSF spaces: Basal cisterns are patent. There is a mild arachnoid cyst seen involving the posterior aspect of posterior fossa, just to the left of the midline. The ventricles are symmetric in size and shape. Brain: No intracranial bleeds or masses. There is cerebral volume loss for age, with resultant ventricular and sulcal prominence. There are periventricular and deep white matter chronic small vessel ischemic changes. 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 There is intracranial internal carotid artery atherosclerosis. Skull and face: Calvarium and visualized facial bones appear intact, without suspicious lesions. Sinuses: Visualized sinuses and mastoids are clear. IMPRESSION: No acute intracranial hemorrhage is seen. No acute intracranial process is seen. Dictated by: Moe Rios M.D. on 02/27/2023 at 16:19 Approved by: Moe Rios M.D. on 02/27/2023 at 16:20
--- NOTE | 2023-02-27 16:49 | ED.HEATRA ---
HPI - Head Injury <Elio HoskinsNELSON - Last Filed: 02/27/23 18:05> General Chief complaint: Head Injury Stated complaint: fall, head injury, on blood thinners Source: patient and family Mode of arrival: Wheelchair History of Present Illness HPI Narrative: 77-year-old male, currently on Eliquis for AFib and on hospice, presents emergency department after falling at the very terminal hitting the right side of his head. Patient denies any loss of consciousness, vision changes, etc.. Patient is with his daughter, who is a physician. Related Data Home Medications Medication Instructions Recorded Confirmed diphenhydramine HCl 25 mg tablet 1 cap DAILY 03/03/18 12/21/21 (Benadryl Allergy) levofloxacin 750 mg tablet 750 mg PO DAILY 09/10/21 12/21/21 Previous Rx's Medication Instructions Recorded acyclovir 400 mg tablet 400 mg PO BID #60 tabs 12/01/18 apixaban 5 mg tablet (Eliquis) 5 mg PO BID 30 days #60 tabs 09/13/21 metoprolol tartrate 25 mg tablet 50 mg (2 x 25 mg) PO BID 30 days 12/20/21 #360 tabs ketoconazole 2 % topical cream 1 applic topical BID #60 grams 12/21/21 Allergies Allergy/AdvReac Type Severity Reaction Status Date / Time No Known Drug Allergies Allergy Verified 12/21/21 14:38 Review of Systems <Elio RosarioNELSON kirby - Last Filed: 02/27/23 18:05> Review of Systems Narrative: Narrative: See HPI. GENERAL: Denies chills, fatigue, fever, sweats. HEENT: Denies sinus pain, ear pain, sore throat, difficulty swallowing, dizziness, vision changes, C-spine tenderness. RESPIRATORY: Denies dyspnea, cough, wheezing, sputum. CARDIOVASCULAR: Denies chest pain. Endorses AFib and bilateral lower extremity edema. GASTROINTESTINAL: Denies nausea, vomiting, abdominal pain, diarrhea, constipation. : Denies dysuria, frequency, incontinence, hematuria, urinary retention, flank pain. MSK: Denies weakness, joint pain, or bony pain. SKIN: Denies skin lesions, or pruritis. Facial abrasions noted to right cheek and orbital region. NEUROLOGIC: Denies weakness, dizziness, headache, numbness, confusion. PSYCHIATRIC: No concerning psychosocial issues. Patient History <NELSON Andersen - Last Filed: 02/27/23 18:05> Medical History Basal cell carcinoma Skin cancer Squamous cell carcinoma Surgical History No pertinent past surgical history Social History marital status: household members: spouse lives independently: Yes Smoking Status: Never smoker alcohol intake: former Smoking Status: Never smoker alcohol intake frequency: a few times a week Substance Use Type: does not use Exam <NELSON Andersen - Last Filed: 02/27/23 18:05> Narrative Exam Narrative: Exam Narrative: GENERAL: This is a well-nourished, well-developed patient, in no acute distress. HEAD: Normocephalic. Abrasions noted to right upper cheek and orbital region. EYES: Pupils equal round and reactive. Extraocular motions intact. No scleral icterus, injection or drainage. No raccoon eyes. ENT: Nose without bleeding, purulent drainage. Throat without erythema, tonsillar hypertrophy or exudate. Uvula midline. Airway patent. TMs and canals clear. No sinus tenderness. NECK: Trachea midline. No JVD or lymphadenopathy. Nontender. No C-spine tenderness or watt signs. CARDIOVASCULAR: Regularly irregular rate, history of AFib, peripheral pulses intact, cap refill <2 sec. RESPIRATORY: Breath sounds equal and clear bilaterally. No wheezes, rales, or rhonchi. No cough. No increased respiratory effort. No accessory muscle use. GASTROINTESTINAL: Abdomen soft, mild upper right-sided tenderness, nondistended without guarding or rebound. No suprapubic pain. MSK: Moves all extremities. Normal range of motion, no clubbing. Positive BLE edema. Neurovascularly intact. NEURO: A&O x 3. SKIN: Warm, dry, no rashes or lesions noted. Abrasions noted to right upper cheek and orbital region. Initial Vital Signs Initial Vital Signs: Vital Signs Temperature 98.6 F 02/27/23 15:19 Pulse Rate 98 H 02/27/23 15:19 Respiratory Rate 18 02/27/23 15:19 Blood Pressure 118/56 L 02/27/23 15:19 Pulse Oximetry 96 02/27/23 15:19 Oxygen Delivery Method Room Air 02/27/23 15:19 Reviewed <DO Estrella Redmond Last Filed: 02/27/23 18:27> Initial Vital Signs Initial Vital Signs: Vital Signs Temperature 98.6 F 02/27/23 15:19 Pulse Rate 98 H 02/27/23 15:19 Respiratory Rate 18 02/27/23 15:19 Blood Pressure 118/56 L 02/27/23 15:19 Pulse Oximetry 96 02/27/23 15:19 Oxygen Delivery Method Room Air 02/27/23 15:19 Course <NELSON Andersen - Last Filed: 02/27/23 18:05> Orders Ordered: ED Orders 02/27/23 16:40 CT head/brain wo con Stat 02/27/23 17:55 CBC Auto Diff [Complete Blood Count AUTO DIFF] Stat CMP [Comprehensive Metabolic Panel] Stat Consultations Consultation #1: Dr. Jen Walker, hospitalist. Suggested that if patient is requesting a head CT, and wants their insurance to pay for it, would need to come off of hospice. Form was provided to family for signature and submission. Vital Signs Vital signs: Vital Signs - 8 hr 02/27/23 15:19 Temperature 98.6 F Pulse Rate 98 H Respiratory Rate 18 Blood Pressure 118/56 L Pulse Oximetry 96 Oxygen Delivery Method Room Air <Elio Pimentel DO - Last Filed: 02/27/23 18:27> Orders Ordered: ED Orders 02/27/23 16:40 CT head/brain wo con Stat 02/27/23 17:55 CBC Auto Diff [Complete Blood Count AUTO DIFF] Stat CMP [Comprehensive Metabolic Panel] Stat Vital Signs Vital signs: Vital Signs - 8 hr 02/27/23 15:19 Temperature 98.6 F Pulse Rate 98 H Respiratory Rate 18 Blood Pressure 118/56 L Pulse Oximetry 96 Oxygen Delivery Method Room Air MDM - Head Injury <NELSON Andersen - Last Filed: 02/27/23 18:05> Differential Diagnosis Differential diagnosis: Likely concussion without loss of consciousness, closed head injury, subarachnoid hematoma and subdural hematoma Lab Data 02/27/23 17:55 02/27/23 17:55 Labs: Lab Results 02/27/23 Range/Units 17:55 WBC 2.0 L (4.5-11.0) X10^3/uL RBC 2.37 L (4.5-5.9) X10^6/uL Hgb 7.7 L (13.5-17.5) g/dL Hct 22.8 L (41-53) % MCV 96.5 (80-100) fL MCH 32.6 (26-34) PG MCHC 33.8 (30-36) % RDW 27.5 H (11.6-14.8) % Plt Count 172 (150-400) X10^3/uL Sodium 139 (137-145) mmol/L Potassium 3.7 (3.4-5.1) mmol/L Chloride 105 (98-107) mmol/L Carbon Dioxide 27 (22-32) mmol/L BUN 43 H (9-20) mg/dL Creatinine 1.17 (0.66-1.25) mg/dL Estimated GFR > 60 (>60) mL/min BUN/Creatinine Ratio 36.8 H (6-22) Glucose 177 H (80-110) mg/dL Calcium 9.0 (8.4-10.2) mg/dL Total Bilirubin 0.7 (0.2-1.3) mg/dL AST TNP ALT 79 H (<50) IU/L Alkaline Phosphatase 135 H (38-126) U/L Total Protein 5.9 L (6.3-8.2) g/dL Albumin 3.3 L (3.5-5.0) g/dL Globulin 2.6 (1.7-4.1) g/dL Albumin/Globulin Ratio 1.3 (1.0-2.8) Imaging Data CT scan - head: Radiologist's Impression: Close Head CT (Signed) Moe Rios - 02/27/[address] [address] [address] Scan Report Signed Patient: Nikolas Rosales MR#: [id number] : 1945 Acct:[id number] Age/Sex: 77 / M Date of Service: 02/27/23 Loc: ED Accession Number: [id number] Procedure: CT head/brain wo con Ordering Provider: Elio Hoskins PROCEDURE: CT HEAD/BRAIN WO CON INDICATIONS: Head injury on Eliquis TECHNIQUE: Noncontrast 4.5 mm thick angled axial sections acquired from the foramen magnum to the vertex, with coronal and sagittal reformats. For radiation dose reduction, the following was used: automated exposure control, adjustment of mA and/or kV according to patient size. COMPARISON: None. FINDINGS: Image quality: Diagnostic. CSF spaces: Basal cisterns are patent. There is a mild arachnoid cyst seen involving the posterior aspect of posterior fossa, just to the left of the midline. The ventricles are symmetric in size and shape. Brain: No intracranial bleeds or masses. There is cerebral volume loss for age, with resultant ventricular and sulcal prominence. There are periventricular and deep white matter chronic small vessel ischemic changes. 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 There is intracranial internal carotid artery atherosclerosis. Skull and face: Calvarium and visualized facial bones appear intact, without suspicious lesions. Sinuses: Visualized sinuses and mastoids are clear. IMPRESSION: No acute intracranial hemorrhage is seen. No acute intracranial process is seen. Dictated by: Moe Rios M.D. on 02/27/2023 at 16:19 Approved by: Moe Rios M.D. on 02/27/2023 at 16:[address] [facility] Narrative Medical decision making narrative: 77-year-old male with closed head injury earlier today. Assessment was encouraging and no neurological deficits noted. Due to patient being on blood thinners, head CT was obtained. CT results were normal. CBC and CMP obtained. Patient needs to make the [place] and will therefore review their lab [facility] Discussed plan of care and worsening symptoms that would necessitate a return visit. Patient and family verbalized understanding and was agreeable with course of action. <Elio Pimentel, DO - Last Filed: 02/27/23 18:27> Lab Data Labs: Lab Results 02/27/23 Range/Units 17:55 WBC 2.0 L (4.5-11.0) X10^3/uL RBC 2.37 L (4.5-5.9) X10^6/uL Hgb 7.7 L (13.5-17.5) g/dL Hct 22.8 L (41-53) % MCV 96.5 (80-100) fL MCH 32.6 (26-34) PG MCHC 33.8 (30-36) % RDW 27.5 H (11.6-14.8) % Plt Count 172 (150-400) X10^3/uL Sodium 139 (137-145) mmol/L Potassium 3.7 (3.4-5.1) mmol/L Chloride 105 (98-107) mmol/L Carbon Dioxide 27 (22-32) mmol/L BUN 43 H (9-20) mg/dL Creatinine 1.17 (0.66-1.25) mg/dL Estimated GFR > 60 (>60) mL/min BUN/Creatinine Ratio 36.8 H (6-22) Glucose 177 H (80-110) mg/dL Calcium 9.0 (8.4-10.2) mg/dL Total Bilirubin 0.7 (0.2-1.3) mg/dL AST TNP ALT 79 H (<50) IU/L Alkaline Phosphatase 135 H (38-126) U/L Total Protein 5.9 L (6.3-8.2) g/dL Albumin 3.3 L (3.5-5.0) g/dL Globulin 2.6 (1.7-4.1) g/dL Albumin/Globulin Ratio 1.3 (1.0-2.8) Discharge Plan Departure Patient Disposition: Home Clinical Impression: Closed head injury Qualifiers: Encounter type: initial encounter Qualified Code(s): S09.90XA - Unspecified injury of head, initial encounter Instructions: DI for Closed Head Injury Activity Restrictions/Additional Instructions: *You have been diagnosed with a closed-head injury. Your CT was normal and no red flag symptoms exist. Your lab results will show up on your MyChart for your review. For any worsening symptoms, please feel free to return to the emergency department. *What to do: *Please continue to take your regular medications as directed. [ ] New medication prescriptions sent to your pharmacy: [ ] [ ] New medication written as a paper prescription [x ] No new medications given *Please follow up with your primary care provider in 2-3 days, call for an appointment. Let them know you were seen in the Emergency Department and that we ask that you be seen in follow up. We will electronically transmit a record of today's note if your PCP is in our system *If you do not have a primary care provider please contact the [facility] Resource line at [phone]. They will ask some questions about your medical history and help get you set up with a doctor in the community. ? Return to ER if you should have any new, worsening or concerning symptoms, such as worsening pain, severe headache, confusion, chest pain, difficulty breathing, fever greater than 101 F, shaking chills, persistent vomiting to the point that you cannot drink fluids, or other new or worsening symptoms. Prescriptions: No Action metoprolol tartrate 25 mg tablet 50 mg PO BID 30 Days Qty: 360 2RF diphenhydramine HCl [Benadryl Allergy] 25 mg Tablet 1 cap DAILY acyclovir 400 mg Tablet 400 mg PO BID Qty: 60 3RF levofloxacin 750 mg Tablet 750 mg PO DAILY Eliquis 5 mg Tablet 5 mg PO BID 30 Days Qty: 60 2RF Rx Instructions: Please start on 09/19 after stopping 10MG BID Dosing ketoconazole 2 % cream 1 applic topical BID Qty: 60 0RF Referrals: Isac Roy MD [Primary Care Provider] - Stand Alone Forms: Patient Portal/API ED Sign-out <Elio Pimentel, - Last Filed: 02/27/23 18:27> Cosign ED Attending Cosignature Attestation: Dr Pimentel Co-Sign Statement: I was available for consultation during this patient's emergency department visit. This chart is signed by myself for administrative purposes only. I did not have direct contact with this patient during this visit. They were seen independently by the [facility].
[2023-02-27 18:17] LABS: Add Manual Diff / Slide Review NO; Basophils Absolute Auto 0 /uL (0-100); Basophils Percent Auto 1.1 % (0-2); Eosinophils Absolute Auto 0 /uL (0-450); Eosinophils Percent Auto 1.1 % (2-4); Hematocrit 22.8 % (41-53); Hemoglobin 7.7 g/dL (13.5-17.5); Lymphocytes Absolute Auto 500 /uL (1100-4500); Lymphocytes Percent Auto 24.2 % (25-40); Mean Corpuscular HGB Conc 33.8 % (30-36); Mean Corpuscular Hemoglobin 32.6 PG (26-34); Mean Corpuscular Volume 96.5 fL (80-100); Monocytes Absolute Auto 200 /uL (0-900); Monocytes Percent Auto 9.3 % (3-14); Neutrophils Absolute Auto 1300 /uL (1500-7000); Neutrophils Percent Auto 64.3 % (50-75); Platelet Count 172 X10^3/uL (150-400); Red Blood Cell Count 2.37 X10^6/uL (4.5-5.9); Red Cell Distribution Width 27.5 % (11.6-14.8)
[2023-02-27 18:18] LABS: Alanine Aminotransferase 79 IU/L (<50); Albumin 3.3 g/dL (3.5-5.0); Albumin Globulin Ratio 1.3 (1.0-2.8); Alkaline Phosphatase 135 U/L (38-126); BUN Creatinine Ratio 36.8 (6-22); Bilirubin Total 0.7 mg/dL (0.2-1.3); Blood Urea Nitrogen 43 mg/dL (9-20); Carbon Dioxide 27 mmol/L (22-32); Chloride 105 mmol/L (98-107); Estimated Glomerular Filt Rate > 60 mL/min (>60); Globulin 2.6 g/dL (1.7-4.1); Glucose 177 mg/dL (80-110); HEMOLYSIS < 15 (0-50); Potassium 3.7 mmol/L (3.4-5.1); Sodium 139 mmol/L (137-145); Total Protein 5.9 g/dL (6.3-8.2)
[2023-02-27 18:52] LABS: Anisocytosis 2+
[2023-02-28 15:35] LABS: Aspartate Aminotransferase 37 IU/L (17-59)
== END 2023-02-27 18:05 | disposition home or self-care (01) ==
PROVIDERS: Emergency Provider Registered Nurse; Family Provider Family Medicine; PCP Family Medicine
DX: S09.90XA Unspecified injury of head, initial encounter (principal); W18.00XA Striking against unspecified object with subsequent fall, initial encounter; Z79.01 Long term (current) use of anticoagulants
CPT/HCPCS: 70450; 80053; 85025; 99281; 99284

== ENCOUNTER 2023-07-19 14:24 | Observation (INO) | payer MEDICARE, OTHER, SELFPAY ==
[2023-01-09 10:06] VITALS: BMI 25.2
[2023-07-19] VITALS (9 sets, daily range): BP systolic 89–106; BP diastolic 49–65; PULSE 96–125; RESP 16–23; TEMP 36.6–37.4; O2SAT 96–99; BMI 24.4
--- NOTE | 2023-07-19 14:59 | ED_ITS ---
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 He reports that he feels extremely weak and tired sometimes he is short of breath. No significant chest pain. He denies any sort of fever or chills. He has had multiple transfusions he knows he has antibodies. He was hospitalized last fall [facility] with neutropenic fever. He had outpatient blood work done on [facility] with a hemoglobin of 5.9 he called [facility] nursing hotline who instructed him to come to the ED for transfusion. Related Data Home Medications Medication Instructions Recorded Confirmed diphenhydramine HCl 25 mg tablet 1 cap DAILY 03/03/18 12/21/21 (Benadryl Allergy) levofloxacin 750 mg tablet 750 mg PO DAILY 09/10/21 12/21/21 Previous Rx's Medication Instructions Recorded acyclovir 400 mg tablet 400 mg PO BID #60 tabs 12/01/18 apixaban 5 mg tablet (Eliquis) 5 mg PO BID 30 days #60 tabs 09/13/21 metoprolol tartrate 25 mg tablet 50 mg (2 x 25 mg) PO BID 30 days 12/20/21 #360 tabs ketoconazole 2 % topical cream 1 applic topical BID #60 grams 12/21/21 Allergies Allergy/AdvReac Type Severity Reaction Status Date / Time No Known Drug Allergies Allergy Verified 12/21/21 14:38 Patient History Medical History Basal cell carcinoma Skin cancer Squamous cell carcinoma Surgical History No pertinent past surgical history Social History marital status: household members: spouse lives independently: Yes Smoking Status: Never smoker alcohol intake: former Smoking Status: Never smoker alcohol intake frequency: a few times a week Substance Use Type: does not use Exam Initial Vital Signs Initial Vital Signs: Vital Signs Temperature 97.8 F 07/19/23 14:33 Pulse Rate 120 H 07/19/23 14:33 Respiratory Rate 22 07/19/23 14:33 Blood Pressure 101/64 07/19/23 14:33 Pulse Oximetry 98 07/19/23 14:33 Oxygen Delivery Method Room Air 07/19/23 14:33 GENERAL: Alert very pleasant 77-year-old male and in no acute distress. HEENT: Head atraumatic,EOMI, pupils reactive, face symmetric, moist mucous membranes CARDIOVASCULAR: Regular rate and rhythm without murmurs, rubs or gallops. RESPIRATORY: Breath sounds equal bilaterally, no wheezes rales or rhonchi. ABDOMEN: Soft, nontender. Normoactive bowel sounds all 4 quadrants. No guarding or rebound. EXTREMITIES: Normal range of motion, no clubbing or edema. Neurovascularly intact NEUROLOGICAL: Alert and oriented x4.Normal gait and speech. Cranial nerves II through XII grossly intact. SKIN: Warm, dry, no laceration, no petechiae, no rashes or lesions. Course Orders Ordered: ED Orders 07/19/23 14:40 Complete Blood Count AUTO DIFF Stat Comprehensive Metabolic Panel Stat Type and Screen Stat Acetaminophen (Acetaminophen 325 Mg Tablet) 650 mg PO Q6H PRN PRN Reason: Fever/Mild Pain (1-3) Hydrocodone Bitart/Acetaminophen (Hydrocodone/Acet 5/325 Tablet) 2 tab PO Q4H PRN PRN Reason: Pain, Severe (7-10) Naloxone HCl (Naloxone 0.4 Mg/Ml Vial) 0.2 mg IV Q2MIN PRN PRN Reason: Opiate Reversal Ondansetron HCl (Ondansetron 4 Mg/2 Ml Inj) 4 mg IV Q8HR PRN PRN Reason: Nausea And Vomiting Vital Signs Vital signs: Vital Signs - 8 hr 07/19/23 14:33 07/19/23 14:33 07/19/23 15:00 Temperature 97.8 F Pulse Rate 120 H 108 H 96 H Respiratory Rate 22 21 22 Blood Pressure 101/64 98/51 L Pulse Oximetry 98 98 98 Oxygen Delivery Method Room Air 07/19/23 15:17 07/19/23 15:17 07/19/23 15:24 Temperature Pulse Rate 104 H Respiratory Rate 20 Blood Pressure 98/61 92/51 L Pulse Oximetry 98 Oxygen Delivery Method Room Air 07/19/23 15:24 07/19/23 15:30 07/19/23 15:30 Temperature Pulse Rate 125 H 106 H Respiratory Rate 20 16 Blood Pressure 101/58 L Pulse Oximetry 96 99 Oxygen Delivery Method Room Air MDM - Recheck/Abnormal Lab/Rx Lab Data 07/19/23 14:40 07/19/23 14:40 Labs: Lab Results 07/19/23 Range/Units 14:40 WBC 4.6 (4.5-11.0) X10^3/uL RBC 1.89 L (4.5-5.9) X10^6/uL Hgb 6.2 L* (13.5-17.5) g/dL Hct 18.5 L* (41-53) % MCV 98.3 (80-100) fL MCH 32.9 (26-34) PG MCHC 33.5 (30-36) % RDW 24.1 H (11.6-14.8) % Plt Count 258 (150-400) X10^3/uL Neut % (Auto) 70.0 (50-75) % Lymph % (Auto) 17.4 L (25-40) % [facility] % (Auto) 10.6 (3-14) % Eos % (Auto) 1.2 L (2-4) % Baso % (Auto) 0.8 (0-2) % Neut # (Auto) 3200 (9503-4312) /uL Lymph # (Auto) 800 L (8646-2109) /uL [facility] # (Auto) 500 (0-900) /uL Eos # (Auto) 100 (0-450) /uL Baso # (Auto) 0 (0-100) /uL Nucleated RBCs Cancelled Hypersegmented Neuts Cancelled Hypogranular Neuts Cancelled Reactive Lymphocytes Cancelled Smudge Cells Cancelled Other Cell Type Cancelled Toxic Granulation Cancelled Toxic Vacuolation Cancelled Dohle Bodies Cancelled Marsha Rods Cancelled WBC Morphology Comment Cancelled Platelet Estimate Cancelled Clumped Platelets Cancelled Plt Morphology Comment Cancelled RBC Morphology Cancelled Dimorphic RBCs Cancelled Polychromasia Cancelled Hypochromasia Cancelled Poikilocytosis Cancelled Basophilic Stippling Cancelled Anisocytosis Cancelled Microcytosis Cancelled Macrocytosis Cancelled Spherocytes Cancelled Pappenheimer Bodies Cancelled Sickle Cells Cancelled Target Cells Cancelled Tear Drop Cells Cancelled Ovalocytes Cancelled Stomatocytes Cancelled Helmet Cells Cancelled Parmar-[place] Bodies Cancelled Brinnon Rings Cancelled Jesika Cells Cancelled Acanthocytes (Spur) Cancelled Rouleaux Cancelled Schistocytes Cancelled Sodium 139 (137-145) mmol/L Potassium 4.4 (3.4-5.1) mmol/L Chloride 105 (98-107) mmol/L Carbon Dioxide 28 (22-32) mmol/L BUN 53 H (9-20) mg/dL Creatinine 1.33 H (0.66-1.25) mg/dL Estimated GFR 56 L (>60) mL/min BUN/Creatinine Ratio 39.8 H (6-22) Glucose 150 H (80-110) mg/dL Calcium 8.9 (8.4-10.2) mg/dL Total Bilirubin 0.8 (0.2-1.3) mg/dL AST 37 (17-59) IU/L ALT 87 H (<50) IU/L Alkaline Phosphatase 140 H (38-126) U/L Total Protein 5.8 L (6.3-8.2) g/dL Albumin 3.8 (3.5-5.0) g/dL Globulin 2.0 (1.7-4.1) g/dL Albumin/Globulin Ratio 1.9 (1.0-2.8) MDM Narrative Medical decision making narrative: Patient is 77-year-old male overall appears well presents today with increasing fatigue need for transfusion. He has had frequent transfusions secondary to myelodysplastic syndrome. 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 Reports that he feels fatigued sometimes short of breath. He is noted to be slightly hypotensive here in the emergency department but states he is always low which is confirmed by review of vitals. Not uncommon for blood pressure to be in the 90s. He is awake and alert without any sort of deficits Type and screen reports he is multiple antibodies which patient is a it will take 12-16 hours to get a unit of blood that is appropriate for him. He is resistant to staying in the hospital but agrees. It looks like at [facility] he had a hemoglobin of 6.7 hematocrit of 21. Blood work from [facility] has been reviewed, seems to live with hemoglobin of 7 to 8 Blood work WBC 4.6, hemoglobin 6.2 hematocrit 18.5 platelets 258, sodium 137, potassium 4.4, chloride 105, carbon dioxide 28, BUN 53, creatinine 1.33 glucose 150 Patient overall appears well he is in atrial fib on the monitor with rate control. Blood pressure is low he is asymptomatic. Would definitely benefit from a blood transfusion, will be placed in observation due to the length of time it will take to get the blood Dr. Avendano accepts patient Discharge Plan Departure Patient Disposition: Admitted as Observation Clinical Impression: Myelodysplastic syndrome, Anemia Admit Date/Time: 07/19/23 15:39 Admit Provider: Jose Avendano
[2023-07-19 15:01] LABS: Add Manual Diff / Slide Review NO; Basophils Absolute Auto 0 /uL (0-100); Basophils Percent Auto 0.8 % (0-2); Eosinophils Absolute Auto 100 /uL (0-450); Eosinophils Percent Auto 1.2 % (2-4); Lymphocytes Absolute Auto 800 /uL (1100-4500); Lymphocytes Percent Auto 17.4 % (25-40); Mean Corpuscular HGB Conc 33.5 % (30-36); Mean Corpuscular Hemoglobin 32.9 PG (26-34); Mean Corpuscular Volume 98.3 fL (80-100); Monocytes Absolute Auto 500 /uL (0-900); Monocytes Percent Auto 10.6 % (3-14); Neutrophils Absolute Auto 3200 /uL (1500-7000); Platelet Count 258 X10^3/uL (150-400); Red Blood Cell Count 1.89 X10^6/uL (4.5-5.9); Red Cell Distribution Width 24.1 % (11.6-14.8); White Blood Cell Count 4.6 X10^3/uL (4.5-11.0)
[2023-07-19 15:02] LABS: Hematocrit 18.5 % (41-53); Hemoglobin 6.2 g/dL (13.5-17.5)
[2023-07-19 15:06] LABS: Alanine Aminotransferase 87 IU/L (<50); Albumin 3.8 g/dL (3.5-5.0); Albumin Globulin Ratio 1.9 (1.0-2.8); Alkaline Phosphatase 140 U/L (38-126); Aspartate Aminotransferase 37 IU/L (17-59); BUN Creatinine Ratio 39.8 (6-22); Bilirubin Total 0.8 mg/dL (0.2-1.3); Blood Urea Nitrogen 53 mg/dL (9-20); Calcium 8.9 mg/dL (8.4-10.2); Carbon Dioxide 28 mmol/L (22-32); Chloride 105 mmol/L (98-107); Estimated Glomerular Filt Rate 56 mL/min (>60); Glucose 150 mg/dL (80-110); HEMOLYSIS < 15 (0-50); Potassium 4.4 mmol/L (3.4-5.1); Sodium 139 mmol/L (137-145); Total Protein 5.8 g/dL (6.3-8.2)
--- NOTE | 2023-07-19 16:33 | P.HP_ITS ---
History of Present Illness History of Present Illness Date Patient Seen: 07/19/23 Chief complaint: blood count critical Narrative: ED Physician: Patient is a 77-year-old male history of atrial fibrillation, renal artery thrombosis, splenic infarct, myelodysplastic syndrome requiring multiple blood transfusions presenting today for a blood transfusion. He reports that he feels extremely weak and tired sometimes he is short of breath. No significant chest pain. He denies any sort of fever or chills. He has had multiple transfusions he knows he has antibodies. He was hospitalized last fall [facility] with neutropenic fever. He had an outpatient blood draw at [facility] such he looked at his own results and thought they were low he called and consulted the on-call nurse who recommended he come to the ED for transfusion and evaluation. Now: He was advised to come in for low numbers. He feels about the same as usual. He has a chronic malaise and generalized fatigue. He denies any chest pain, or more severe dyspnea on exertion. He also denies any syncopal episodes. No rectal bleeding. He does take apixaban. He notes that he gets blood about every 2 weeks for his MDS. [facility] Medical History Basal cell carcinoma Skin cancer Squamous cell carcinoma Surgical History No pertinent past surgical history Social History marital status: household members: spouse lives independently: Yes Smoking Status: Never smoker alcohol intake: former Meds Home Medications and Allergies Home Medications Medication Instructions Recorded Confirmed Type diphenhydramine HCl 25 mg tablet 1 cap DAILY 03/03/18 12/21/21 History (Benadryl Allergy) acyclovir 400 mg tablet 400 mg PO BID #60 tabs 12/01/18 12/21/21 Rx levofloxacin 750 mg tablet 750 mg PO DAILY 09/10/21 12/21/21 History apixaban 5 mg tablet (Eliquis) 5 mg PO BID 30 days #60 tabs 09/13/21 12/21/21 Rx metoprolol tartrate 25 mg tablet 50 mg (2 x 25 mg) PO BID 30 days 12/20/21 12/21/21 Rx #360 tabs ketoconazole 2 % topical cream 1 applic topical BID #60 grams 12/21/21 12/21/21 Rx Allergies Allergy/AdvReac Type Severity Reaction Status Date / Time No Known Drug Allergies Allergy Verified 12/21/21 14:38 Review of Systems Review of Systems Narrative: All else reviewed and otherwise unremarkable except as noted in the history and physical. Exam Vital Signs (past 8 hours): - 07/19/23 14:33 07/19/23 14:33 07/19/23 15:00 Temperature 97.8 F Pulse Rate 120 H 108 H 96 H Respiratory Rate 22 21 22 Blood Pressure 101/64 98/51 L Pulse Oximetry 98 98 98 Oxygen Delivery Method Room Air 07/19/23 15:17 07/19/23 15:17 07/19/23 15:24 Temperature Pulse Rate 104 H Respiratory Rate 20 Blood Pressure 98/61 92/51 L Pulse Oximetry 98 Oxygen Delivery Method Room Air 07/19/23 15:24 07/19/23 15:30 07/19/23 15:30 Temperature Pulse Rate 125 H 106 H Respiratory Rate 20 16 Blood Pressure 101/58 L Pulse Oximetry 96 99 Oxygen Delivery Method Room Air 07/19/23 16:00 07/19/23 16:00 Temperature Pulse Rate 99 H Respiratory Rate 23 Blood Pressure 95/59 L Pulse Oximetry 98 Oxygen Delivery Method Oxygen Delivery Method Room Air Narrative Exam Narrative: NAD, alert and oriented, fluent speech, calm. Normocephalic skull, EOMI, anicteric sclera, symmetric pupils. Oropharynx unremarkable, no droop. Neck supple, midline trachea, no adenopathy. Lungs clear, normal rate and effort. Heart regular, no murmur gallop or rub. Abdomen is soft, non distended and non tender. Extremities are free of edema. Skin is free of rash or lesions. Joints are not swollen or deformed. Judgment appears to be normal. Objective Labs 07/19/23 14:40 07/19/23 14:40 Labs: Laboratory Results - last 24 hr 07/19/23 14:40 WBC 4.6 RBC 1.89 L Hgb 6.2 L* Hct 18.5 L* MCV 98.3 MCH 32.9 MCHC 33.5 RDW 24.1 H Plt Count 258 Neut % (Auto) 70.0 Lymph % (Auto) 17.4 L Reagan % (Auto) 10.6 Eos % (Auto) 1.2 L Baso % (Auto) 0.8 Neut # (Auto) 3200 Lymph # (Auto) 800 L Reagan # (Auto) 500 Eos # (Auto) 100 Baso # (Auto) 0 Nucleated RBCs Cancelled Hypersegmented Neuts Cancelled Hypogranular Neuts Cancelled Reactive Lymphocytes Cancelled Smudge Cells Cancelled Other Cell Type Cancelled Toxic Granulation Cancelled Toxic Vacuolation Cancelled Dohle Bodies Cancelled Marsha Rods Cancelled WBC Morphology Comment Cancelled Platelet Estimate Cancelled Clumped Platelets Cancelled Plt Morphology Comment Cancelled RBC Morphology Cancelled Dimorphic RBCs Cancelled Polychromasia Cancelled Hypochromasia Cancelled Poikilocytosis Cancelled Basophilic Stippling Cancelled Anisocytosis Cancelled Microcytosis Cancelled Macrocytosis Cancelled Spherocytes Cancelled Pappenheimer Bodies Cancelled Sickle Cells Cancelled Target Cells Cancelled Tear Drop Cells Cancelled Ovalocytes Cancelled Stomatocytes Cancelled Helmet Cells Cancelled Parmar-[place] Bodies Cancelled [place] Rings Cancelled Jes[place] Cells Cancelled Acanthocytes (Spur) Cancelled Rouleaux Cancelled Schistocytes Cancelled Sodium 139 Potassium 4.4 Chloride 105 Carbon Dioxide 28 BUN 53 H Creatinine 1.33 H Estimated GFR 56 L BUN/Creatinine Ratio 39.8 H Glucose 150 H Calcium 8.9 Total Bilirubin 0.8 AST 37 ALT 87 H Alkaline Phosphatase 140 H Total Protein 5.8 L Albumin 3.8 Globulin 2.0 Albumin/Globulin Ratio 1.9 Assessment & Plan Assessment & Plan narrative: 1. Acute on chronic anemia, present on admission and active. 2. MDS, present on admission and active. 3. Atrial fibrillation, present on admission and stable. 4. History of renal artery thrombosis, present on admission and stable. 5. Difficult cross-match with blood. Present on admission and active. Plan: -Cross match and transfuse 2 units of packed red blood cells and then likely discharge home. He is expected need 1 midnight of hospital level care. He is admitted to observation status. He is DNR, confirmed today. Time Spent With Patient Time with patient: 30 to 49 minutes with 50% spent counseling/coordinating care Quality MIPS - Admit I confirm the patient?s Advance Care Plan is present, Code status is documented, Surrogate decision maker is in patient?s record [If Yes, STOP here]: Yes MIPS - Meds 'Current medications' to include all prescriptions, [id number] products, herbals, cannabis/cannabidiol products, and vitamin/mineral/dietary (nutritional) supplements. I have utilized all available resources to obtain, update, or review the patient?s current medications. [If Yes, STOP here]: Yes
--- NOTE | 2023-07-19 18:11 | PC.NURSE ---
Day shift: Pt to get 2 unit of blood per Dr Avendano order. Blood is not ready/here at this time (1800).
[2023-07-19 18:57] LABS: Magnesium 2.5 mg/dL (1.6-2.3)
[2023-07-19] MEDS: SODIUM CHLORIDE 0.9% FLUSH 10 ML IV (20:34)
--- NOTE | 2023-07-19 23:49 | PC.NURSE ---
Patient is alert and oriented. Breath sounds diminished at bases bilaterally but CTA with RA sat of 98%. Denies SOB unless walking up staircase. HR is irregular (chronic) w/telemetry reading of afib RVR and rate of 102. BP low at 96/51 but asymptomatic; Metoprolol held after discussion with MAID HOUSEKEEPER, Enriqueta. Denied nausea. BT present and abdomen is soft. Has chronic urinary frequency/urgency so has condom catheter on at this time; denied dysuria. Is able to turn himself in bed. When out of bed is provided SBA and uses walker and is weak. Denied pain. Refusing SCD's so reminded to ankle wave. Fall risk score is high and bed alarm is activated. BP at 0000 was 79/47 (MAP 57) on left arm and 80/49 (MAP 70) on right arm. Remains asymptomatic. Dr. Dawson informed of BP readings and that Metoprolol was held earlier; awaiting a response at this time.
[2023-07-20] VITALS (9 sets, daily range): BP systolic 87–108; BP diastolic 53–70; PULSE 58–104; RESP 16–20; TEMP 36.4–36.8; O2SAT 94–95
[2023-07-20] MEDS: SODIUM CHLORIDE 0.9% 1,000 ML 500 ML IV (00:14)
[2023-07-20] MEDS: SODIUM CHLORIDE 0.9% FLUSH 10 ML IV ×2 (00:16→09:30)
[2023-07-20] MEDS: TRAZODONE 50 MG TABLET PO (03:52)
[2023-07-20] MEDS: LORazepam 0.5 MG TABLET PO (03:52)
--- NOTE | 2023-07-20 11:24 | PM.DS.1 ---
History of Present Illness History of Present Illness Chief complaint: blood count critical Narrative: ED Physician: Patient is a 77-year-old male history of atrial fibrillation, renal artery thrombosis, splenic infarct, myelodysplastic syndrome requiring multiple blood transfusions presenting today for a blood transfusion. He reports that he feels extremely weak and tired sometimes he is short of breath. No significant chest pain. He denies any sort of fever or chills. He has had multiple transfusions he knows he has antibodies. He was hospitalized last fall [facility] with neutropenic fever. He had an outpatient blood draw at [place] such he looked at his own results and thought they were low he called and consulted the on-call nurse who recommended he come to the ED for transfusion and evaluation. Now: He was advised to come in for low numbers. He feels about the same as usual. He has a chronic malaise and generalized fatigue. He denies any chest pain, or more severe dyspnea on exertion. He also denies any syncopal episodes. No rectal bleeding. He does take apixaban. He notes that he gets blood about every 2 weeks for his MDS. Discharge Providers Provider Date of admission: 07/19/23 15:39 Discharge Date: 07/20/23 Primary care physician: Isac Roy MD Consults: None. Discharge provider: Jose Avendano MD Summary Hospital Course Discharge Diagnosis: 1. Acute on chronic anemia, present on admission and active. 2. MDS, present on admission and active. 3. Atrial fibrillation, present on admission and stable. 4. History of renal artery thrombosis, present on admission and stable. 5. Difficult cross-match with blood. Present on admission and active. Hospital Course: He was admitted with recurrent anemia secondary to myelodysplasia. He received 2 units of blood without complication. He does have AFib with a fair amount of ectopy and had 1 small run of VT. He notes that he has limited amount of time to live and is not very concerned about the general status of this Heart and would like to return home to [facility]. He had no other complaints and is stable for discharge. Status at Discharge Cognitive/behavioral status at discharge: oriented Functional status at discharge: uses cane/walker Overall status at discharge: patient is back to baseline Time Spent with Patient Time spent: Greater than 30 minutes Exam Vital Signs (past 8 hours): - 07/20/23 04:53 07/20/23 05:03 07/20/23 05:18 Temperature 97.5 F L 97.5 F L 98.2 F Pulse Rate 88 88 100 H Respiratory Rate 20 20 20 Blood Pressure 94/54 L 94/54 L 90/53 L Pulse Oximetry 07/20/23 07:52 07/20/23 10:00 Temperature 98.2 F 98.0 F Pulse Rate 104 H 58 L Respiratory Rate 18 16 Blood Pressure 100/69 108/70 Pulse Oximetry 94 Oxygen Delivery Method Room Air Oxygen Flow Rate 0 Narrative Exam Narrative: NAD, alert and oriented. Fluent speech. Lungs are clear, normal rate and effort. Heart is regular, no murmur gallop or rub. Abdomen is soft, non distended. Extremities are free of edema. Objective Labs 07/19/23 14:40 07/19/23 14:40 Labs: Laboratory Results - last 24 hr 07/19/23 07/19/23 07/19/23 14:40 14:40 14:40 WBC 4.6 RBC 1.89 L Hgb 6.2 L* Hct 18.5 L* MCV 98.3 MCH 32.9 MCHC 33.5 RDW 24.1 H Plt Count 258 Neut % (Auto) 70.0 Lymph % (Auto) 17.4 L Coke % (Auto) 10.6 Eos % (Auto) 1.2 L Baso % (Auto) 0.8 Neut # (Auto) 3200 Lymph # (Auto) 800 L Coke # (Auto) 500 Eos # (Auto) 100 Baso # (Auto) 0 Nucleated RBCs Cancelled Hypersegmented Neuts Cancelled Hypogranular Neuts Cancelled Reactive Lymphocytes Cancelled Smudge Cells Cancelled Other Cell Type Cancelled Toxic Granulation Cancelled Toxic Vacuolation Cancelled Dohle Bodies Cancelled Marsha Rods Cancelled WBC Morphology Comment Cancelled Platelet Estimate Cancelled Clumped Platelets Cancelled Plt Morphology Comment Cancelled RBC Morphology Cancelled Dimorphic RBCs Cancelled Polychromasia Cancelled Hypochromasia Cancelled Poikilocytosis Cancelled Basophilic Stippling Cancelled Anisocytosis Cancelled Microcytosis Cancelled Macrocytosis Cancelled Spherocytes Cancelled Pappenheimer Bodies Cancelled Sickle Cells Cancelled Target Cells Cancelled Tear Drop Cells Cancelled Ovalocytes Cancelled Stomatocytes Cancelled Helmet Cells Cancelled Parmar-[place] Bodies Cancelled [place] Rings Cancelled Jesika Cells Cancelled Acanthocytes (Spur) Cancelled Rouleaux Cancelled Schistocytes Cancelled Sodium 139 Potassium 4.4 Chloride 105 Carbon Dioxide 28 BUN 53 H Creatinine 1.33 H Estimated GFR 56 L BUN/Creatinine Ratio 39.8 H Glucose 150 H Calcium 8.9 Magnesium Total Bilirubin 0.8 AST 37 ALT 87 H Alkaline Phosphatase 140 H Total Protein 5.8 L Albumin 3.8 Globulin 2.0 Albumin/Globulin Ratio 1.9 Blood Type O Positive Antibody Screen Positive Antibody Identification Cold Antibody Anti-K Anti-c Crossmatch 07/19/23 07/19/23 14:40 15:12 WBC RBC Hgb Hct MCV MCH MCHC RDW Plt Count Neut % (Auto) Lymph % (Auto) Coke % (Auto) Eos % (Auto) Baso % (Auto) Neut # (Auto) Lymph # (Auto) Coke # (Auto) Eos # (Auto) Baso # (Auto) Nucleated RBCs Hypersegmented Neuts Hypogranular Neuts Reactive Lymphocytes Smudge Cells Other Cell Type Toxic Granulation Toxic Vacuolation Dohle Bodies Marsha Rods WBC Morphology Comment Platelet Estimate Clumped Platelets Plt Morphology Comment RBC Morphology Dimorphic RBCs Polychromasia Hypochromasia Poikilocytosis Basophilic Stippling Anisocytosis Microcytosis Macrocytosis Spherocytes Pappenheimer Bodies Sickle Cells Target Cells Tear Drop Cells Ovalocytes Stomatocytes Helmet Cells Parmar-[place] Bodies [place] Rings Dewey Cells Acanthocytes (Spur) Rouleaux Schistocytes Sodium Potassium Chloride Carbon Dioxide BUN Creatinine Estimated GFR BUN/Creatinine Ratio Glucose Calcium Magnesium 2.5 H Total Bilirubin AST ALT Alkaline Phosphatase Total Protein Albumin Globulin Albumin/Globulin Ratio Blood Type Antibody Screen Antibody Identification Warm Auto Antibody Crossmatch See Detail [facility] Medical History Basal cell carcinoma Skin cancer Squamous cell carcinoma Surgical History No pertinent past surgical history Social History marital status: household members: spouse lives independently: Yes Smoking Status: Never smoker alcohol intake: former Discharge Assessment & Plan Assessment and Plan Assessment: 1. Acute on chronic anemia, present on admission and active. 2. MDS, present on admission and active. 3. Atrial fibrillation, present on admission and stable. 4. History of renal artery thrombosis, present on admission and stable. 5. Difficult cross-match with blood. Present on admission and active. Plan of Treatment: Stable for discharge home. No change to medications. He tends to get a blood about once every 2 weeks. He is followed primarily at the [facility]. Discharge Plan Discharge Plan Patient Disposition: Home Provider Discharge Comment: Stable for discharge home. Discharge orders & Medications Prescriptions: Continued metoprolol tartrate 25 mg tablet 50 mg PO BID 30 Days Qty: 360 2RF prednisone 10 mg tablet 10 mg PO BID torsemide 20 mg tablet 20 mg PO Q OTHER DAY trazodone 50 mg tablet 50 mg PO ONCE PM PRN (Reason: Sleep) spironolactone 25 mg tablet 12.5 mg PO Q OTHER DAY lorazepam 0.5 mg tablet 0.5 mg PO PC Rx Instructions: Patient may have up to 3 tablets per night for sleep. tamsulosin 0.4 mg capsule 0.4 mg PO DAILY mirtazapine 15 mg tablet 15 mg PO ONCE PM Eliquis 5 mg tablet 2.5 mg PO BID Rx Instructions: Please start on 09/19 after stopping 10MG BID Dosing Medication counseling provided by Pharmacist: No Follow up/Referrals: Isac Roy MD [Primary Care Provider] - Discharge Health Status Multidrug resistant organism: No MDRO Diet/Activity/Treatments Diet: Diet as Tolerated Skin/Wound/Dressing Care Report to your healthcare provider any signs of infection, such as:: chills, fever and increased pain Visit Report/Discharge Packet Instructions: Anemia Stand Alone Forms: Patient Portal/API Discharge Data Primary Care Provider: Isac Roy Attending Provider: Jose Avendano Admit Date/Time: 07/19/23 15:39
--- NOTE | 2023-07-20 14:10 | CM.DANOTE ---
Brief DCP Assessment note Pt is a 77yo M form [facility] here for a blood transfusion. Hx of atrial fibrillation, renal artery thrombosis, splenic infarct, myelodysplastic syndrome requiring multiple blood transfusions. PCP Isac goldman Payer Medicare and greene [employer]OMAT[employer] MACHIN[employer] SUPERVISOR reviewed EMR. Per hospitalist/nursing staff in morning rounds, pt got 2 units of blood, plan to dc home today. Per RN, pt has recurring medical priority boarding pass for his hx of blood transfusions. Friend is on way to transport home to [place]. Per hospitalist/RN report/chart review, no obvious CM needs identified. P: home today with spouse/friend support. no CM needs at this time. CM team will continue to follow as needed. ROSALIO Garcia Discharge Planning/Care Management Advanced directive, confirm from FAMILY Start: 07/19/23 18:07 Freq: Q24H Status: Active Protocol: Document 07/19/23 18:10 YAD (Rec: 07/19/23 18:10 YAD [id number]) Advance Directive, confirm on record Time 18:10 Person contacted patient Copy received No CM Discharge Assessment Start: 07/20/23 14:09 Freq: Status: Active Protocol: Document 07/20/23 14:09 SL (Rec: 07/20/23 14:10 [id number]) Discharge Planning Assessment Assigned Front Desk Associate ROSALIO Almeida DPOA/Assigned Designee Name SpouseArely Contact Information [phone] Advance Directives? Yes Advance Directives on File No History Provided By Patient Prior Living Arrangements House Household Members spouse Independent with ADL's Yes Is patient alert and oriented? Yes Discharge Plan Home Transportation Arrangement friend in POV Referrals Initiated None needed Whiteboard Updated in Patient Room with No name and ext. # of Front Desk Associate Review Status In Process Please Provide Date Initial DC 07/20/23 Assessment Was Performed Next Review Type Continued Stay Review
--- NOTE | 2023-07-20 15:52 | PC.NURSE ---
Patient is A&OX4, VSS, afebrile on RA. He is receiving 2nd unit of RBC's during shift change. It is completed at 0750, and he tolerated it well w/o s/sx of any reaction. He denies any pain, and expresses he is eager to discharge. After breakfast upon hospitalist evaluation, he is cleared for discharge home with his friend back to [facility]. He verbalizes understanding of discharge plan, meds and follow up care. PICC line is left in, as patient has had this longterm for frequent transfusions. He is escorted via w/ch for discharge home with all of his belongings in private vehicle with his friend this am. at approximately 12 pm.
== END 2023-07-20 12:00 | disposition home or self-care (01) ==
LOC: ED 14:28 → AC 15:40
PROVIDERS: Admitting Provider Hospitalist; Emergency Provider Emergency Medicine; Family Provider Family Medicine; PCP Family Medicine; Referring Provider Emergency Medicine; Visit Provider Hospitalist
DX: D46.9 Myelodysplastic syndrome, unspecified (principal); D63.8 Anemia in other chronic diseases classified elsewhere; I48.91 Unspecified atrial fibrillation; Z79.01 Long term (current) use of anticoagulants
CPT/HCPCS: 36415; 36430; 80053; 83735; 85025; 86850; 86870; 86900; 86901; 99284; G0378; P9016; J1642

== ENCOUNTER → 2023-09-10 12:00 | Outpatient (CLI) | payer OTHER, MEDICARE, SELFPAY ==
[2023-07-19 17:56] VITALS: BMI 24.4
[2023-09-10 22:03] LABS: Add Manual Diff / Slide Review NO; Basophils Absolute Auto 0 /uL (0-100); Basophils Percent Auto 0.8 % (0-2); Eosinophils Absolute Auto 0 /uL (0-450); Eosinophils Percent Auto 0.9 % (2-4); Lymphocytes Absolute Auto 600 /uL (1100-4500); Lymphocytes Percent Auto 16.5 % (25-40); Mean Corpuscular HGB Conc 33.2 % (30-36); Mean Corpuscular Hemoglobin 30.6 PG (26-34); Monocytes Absolute Auto 400 /uL (0-900); Monocytes Percent Auto 10.8 % (3-14); Neutrophils Absolute Auto 2400 /uL (1500-7000); Platelet Count 205 X10^3/uL (150-400); Red Blood Cell Count 1.81 X10^6/uL (4.5-5.9); Red Cell Distribution Width 16.8 % (11.6-14.8); White Blood Cell Count 3.4 X10^3/uL (4.5-11.0)
[2023-09-10 22:10] LABS: Hematocrit 16.7 % (41-53); Hemoglobin 5.5 g/dL (13.5-17.5)
== END ==
PROVIDERS: Family Provider Family Medicine; PCP Family Medicine; Visit Provider Family Medicine
DX: D46.9 Myelodysplastic syndrome, unspecified (principal)
CPT/HCPCS: 85025